=== PATIENT | female | born 1935 | race Caucasian/White ===

== ENCOUNTER 2017-02-27 00:43 | Emergency (ER) | payer MEDICARE ==
[~2017-02-27] VITALS: Ht 167.6 cm; Wt 63.5 kg
[~2017-02-27 00:43] MED LIST: ALBUTEROL0.09 MG/A2 INH; AMARYL4 MG PO; AMOXICILLIN500 MG PO; ANTIVERT25 MG PO; ASPIR-LOX325 MG PO; ASPIRIN325 MG PO; AZITHROMYCIN250 MG PO; AZITHROMYCIN500 MG PO; B121000 MCG/1 IM; CARBIDOPA & LEV1 TA1 PO; CEFTIN500 MG PO; DOXYCYCLINE100 MG PO; DULCOLAX5 MG PO; ELAVIL25 MG PO; ELAVIL50 MG PO; FERROUS SULFAT324 M1 PO; GABAPENTIN100 MG PO; HUMALOG100 U/ML SC; JANUMET 1000 MG1 TA1 PO; LANTUS100 U/ML SC; METFORMIN HCL1000 MG PO; MIRALAX17 GM/DOSE PO; MOM30 ML PO; NEURONTIN100 MG PO; OXYGEN NAS; PREDNISONE10 MG PO; SIMVASTATIN80 MG PO; SYNTHROID0.1 MG PO; SYNTHROID0.125 MG PO; TRANSDERM0.33 MG/24 TD; TYLENOL325 M2 PO; VIBRAMYCIN100 MG PO; VITAMIN B121000 MC2 SL; ZITHROMAX250 MG PO; ZOLOFT25 MG PO
[2017-02-27 00:45] VITALS: BP 159/78
== END 2017-02-27 02:47 | disposition home or self-care (01) ==
LOC: ED 00:43
DX: K59.03 Drug induced constipation (principal); Z88.1 Allergy status to other antibiotic agents; Z88.6 Allergy status to analgesic agent; Z88.2 Allergy status to sulfonamides; Z79.82 Long term (current) use of aspirin; Z79.899 Other long term (current) drug therapy

== ENCOUNTER 2017-06-09 19:47 | Emergency (ER) | payer MEDICARE ==
[~2017-06-09] VITALS: Ht 162.5 cm; Wt 72.6 kg
[2017-06-09 19:56] VITALS: BP 142/76
[2017-06-09] MEDS ORDERED: DESITIN57 GM T (23:05)
== END 2017-06-09 23:06 | disposition home or self-care (01) ==
LOC: ED 19:47
DX: K59.00 Constipation, unspecified (principal); Z88.2 Allergy status to sulfonamides; Z88.1 Allergy status to other antibiotic agents; Z88.6 Allergy status to analgesic agent; Z79.899 Other long term (current) drug therapy

== ENCOUNTER → 2017-06-15 | Outpatient (CLI) | payer MEDICARE ==
[~2017-06-15] MED LIST changes: +DESITIN57 GM T
[2017-06-15 10:33] LABS: BASO % 0.6 % (0.0-1.0); EOS # 0.2 10*3/uL (0.0-0.4); EOS % 4.8 % (1.0-4.0); HEMATOCRIT 33.4 % (37.0-47.0); HEMOGLOBIN 10.7 g/dl (12.0-16.0); LYMPH # 1.2 10*3/uL (1.3-4.4); LYMPH % 23.3 % (27.0-41.0); MEAN CELL VOLUME 79.3 fl (81.0-99.0); MEAN CORPUSCULAR HGB 25.4 pg (27.0-31.0); MEAN PLATELET VOLUME 9.7 fl (9.6-12.3); MONO # 0.4 10*3/uL (0.1-1.0); MONO % 7.8 % (3.0-9.0); NEUT # 3.2 10*3/uL (2.3-7.9); NEUT % 63.1 % (47.0-73.0); PLATELET COUNT AUTOMATED 222 10*3/uL (130-400); RED BLOOD COUNT 4.21 10*6/uL (4.10-5.10); RED CELL DISTRI WIDTH 16.1 % (0-14.5)
[2017-06-15 10:51] LABS: ALBUMIN 3.6 gm/dl (3.1-4.5); CREATININE 1.48 mg/dL (0.55-1.02); POTASSIUM 5.3 mmol/L (3.5-5.1); TOTAL PROTEIN 7.1 gm/dL (6.4-8.2)
== END | disposition home or self-care (01) ==
LOC: LAB 10:03
PROVIDERS: Internal Medicine
DX: E03.9 Hypothyroidism, unspecified (principal); E11.42 Type 2 diabetes mellitus with diabetic polyneuropathy; E78.00 Pure hypercholesterolemia, unspecified; E11.22 Type 2 diabetes mellitus with diabetic chronic kidney disease; N18.3 Chronic kidney disease, stage 3 (moderate); E55.9 Vitamin D deficiency, unspecified

== ENCOUNTER 2017-07-22 16:08 | Emergency (ER) | payer MEDICARE ==
[2017-07-22 16:45] VITALS: BP 140/90
[2017-07-22 17:18] LABS: BILIRUBIN NEGATIVE (NEGATIVE); BLOOD NEGATIVE (NEGATIVE); CLARITY SL CLOUDY (CLEAR); COLOR YELLOW (YELLOW); GLUCOSE NEGATIVE (NEGATIVE); KETONE NEGATIVE (NEGATIVE); LEUKO ESTERASE 2+ (NEGATIVE); NITRITE POSITIVE (NEGATIVE); UROBILINOGEN 0.2 E.U./dl (0.2-1.0)
[2017-07-22 17:29] LABS: BACTERIA 3+
[2017-07-22 17:31] LABS: HYALINE CAST 0-2; WBC 16-20 wbc/hpf (0-5)
[2017-07-22 17:31] LABS: BASO % 0.7 % (0.0-1.0); EOS # 0.2 10*3/uL (0.0-0.4); EOS % 3.7 % (1.0-4.0); HEMATOCRIT 35.2 % (37.0-47.0); LYMPH # 1.4 10*3/uL (1.3-4.4); LYMPH % 23.9 % (27.0-41.0); MEAN CELL VOLUME 78.6 fl (81.0-99.0); MEAN CORPUSCULAR HGB 24.6 pg (27.0-31.0); MEAN CORPUSCULAR HGB CONC 31.3 g/dl (33.0-37.0); MEAN PLATELET VOLUME 9.5 fl (9.6-12.3); MONO # 0.4 10*3/uL (0.1-1.0); MONO % 7.5 % (3.0-9.0); NEUT # 3.7 10*3/uL (2.3-7.9); PLATELET COUNT AUTOMATED 246 10*3/uL (130-400); RED BLOOD COUNT 4.48 10*6/uL (4.10-5.10); RED CELL DISTRI WIDTH 16.8 % (0-14.5); WHITE BLOOD COUNT 5.7 10*3/uL (4.8-10.8)
[2017-07-22 17:42] LABS: ACT PARTIAL THROMBO TIME 24.3 SECONDS (20.8-31.5)
[2017-07-22 17:48] LABS: ALBUMIN 3.9 gm/dl (3.1-4.5); CREATININE 1.41 mg/dL (0.55-1.02); POTASSIUM 4.6 mmol/L (3.5-5.1); TOTAL PROTEIN 7.6 gm/dL (6.4-8.2)
== END 2017-07-22 20:35 | disposition home or self-care (01) ==
LOC: ED 16:08
PROVIDERS: Emergency Medicine
DX: S49.81XA Other specified injuries of right shoulder and upper arm, initial encounter (principal); S09.8XXA Other specified injuries of head, initial encounter; I25.10 Atherosclerotic heart disease of native coronary artery without angina pectoris; K21.9 Gastro-esophageal reflux disease without esophagitis; E03.9 Hypothyroidism, unspecified; E11.9 Type 2 diabetes mellitus without complications; E11.22 Type 2 diabetes mellitus with diabetic chronic kidney disease; N18.3 Chronic kidney disease, stage 3 (moderate); E78.5 Hyperlipidemia, unspecified; Z85.72 Personal history of non-Hodgkin lymphomas; Z88.2 Allergy status to sulfonamides; Z88.5 Allergy status to narcotic agent; Z88.8 Allergy status to other drugs, medicaments and biological substances; Z79.82 Long term (current) use of aspirin; Z79.84 Long term (current) use of oral hypoglycemic drugs; Z79.4 Long term (current) use of insulin; Z79.899 Other long term (current) drug therapy; W19.XXXA Unspecified fall, initial encounter; Y93.01 Activity, walking, marching and hiking; Y92.89 Other specified places as the place of occurrence of the external cause; Y99.8 Other external cause status

== ENCOUNTER 2017-08-21 22:16 | Inpatient (IN) | payer MEDICARE, OTHER ==
[~2017-08-21] VITALS: Ht 160 cm; Wt 120.4 kg
[~2017-08-21 22:16] MED LIST changes: +AMARYL2 MG PO; -AMARYL4 MG PO; +AMITRIPTYLINE50 MG PO; -ELAVIL50 MG PO; +LANTUS SOL100 UNIT/1 SQ; -NEURONTIN100 MG PO; +NEURONTIN300 MG PO; -SYNTHROID0.1 MG PO; +Synthroid,Lev100 MCG PO
[2017-08-21 22:19] VITALS: BP 181/79
[2017-08-21 22:58] VITALS: BP 160/64
[2017-08-21 22:59] VITALS: BP 141/87
[2017-08-21 23:17] LABS: BASO % 0.5 % (0.0-1.0); EOS # 0.3 10*3/uL (0.0-0.4); HEMATOCRIT 34.7 % (37.0-47.0); HEMOGLOBIN 10.9 g/dl (12.0-16.0); LYMPH # 1.6 10*3/uL (1.3-4.4); LYMPH % 18.7 % (27.0-41.0); MEAN CELL VOLUME 78.5 fl (81.0-99.0); MEAN CORPUSCULAR HGB 24.7 pg (27.0-31.0); MEAN CORPUSCULAR HGB CONC 31.4 g/dl (33.0-37.0); MEAN PLATELET VOLUME 9.8 fl (9.6-12.3); MONO # 0.6 10*3/uL (0.1-1.0); MONO % 6.5 % (3.0-9.0); NEUT # 6.2 10*3/uL (2.3-7.9); PLATELET COUNT AUTOMATED 248 10*3/uL (130-400); RED BLOOD COUNT 4.42 10*6/uL (4.10-5.10); RED CELL DISTRI WIDTH 16.2 % (0-14.5); WHITE BLOOD COUNT 8.7 10*3/uL (4.8-10.8)
[2017-08-21 23:30] LABS: INTERNATIONAL NORM RATIO 0.9 (2.0-3.5)
[2017-08-21 23:33] LABS: ALBUMIN 3.6 gm/dl (3.1-4.5); ALKALINE PHOSPHATASE 63 U/L (45-117); BUN 27 mg/dl (7-24); CHLORIDE 105 mmol/L (98-107); CREATININE 1.64 mg/dL (0.55-1.02); POTASSIUM 4.6 mmol/L (3.5-5.1); SGOT/AST 9 IU/L (3-35); SGPT/ALT 16 U/L (12-78); SODIUM 140 mmol/L (136-145); TOTAL PROTEIN 7.2 gm/dL (6.4-8.2)
[2017-08-21 23:35] LABS: TROPONIN I < 0.015 ng/ml (<0.045)
[2017-08-22 00:23] LABS: BILIRUBIN NEGATIVE (NEGATIVE); BLOOD NEGATIVE (NEGATIVE); CLARITY SL CLOUDY (CLEAR); COLOR YELLOW (YELLOW); GLUCOSE 1+ (NEGATIVE); KETONE TRACE (NEGATIVE); LEUKO ESTERASE 2+ (NEGATIVE); NITRITE POSITIVE (NEGATIVE); SPECIFIC GRAVITY 1.015 (1.005-1.030); UROBILINOGEN 0.2 E.U./dl (0.2-1.0)
[2017-08-22 00:34] LABS: BACTERIA 3+; WBC 51-100 wbc/hpf (0-5)
--- NOTE | 2017-08-22 01:39 | NUR ---
REPORT GIVEN TO HARLAN CALLES
[2017-08-22 02:00] VITALS: BP 158/65
--- NOTE | 2017-08-22 02:00 | NUR ---
A 81, admitted to , under the services of GEORGIA Machuca DO with a diagnosis of . Chief complaint is UTI. FREQUENT FALLS, FAILURE OF OUTPATIENT THERAPY. Patient arrived via OTHER from ER. Monitor applied. Initial assessment completed. Vital signs taken and recorded. GEORGAI MACHUCA DO notified of admission to the unit. Orders received. See assessment for past medical history, medications and allergies. Patient and/or family oriented to unit. visitation policy reviewed. Clothing/patient valuable form completed. WILMAR GARCÍA
--- NOTE | 2017-08-22 02:20 | NUR ---
CRITICAL LACTIC ACID CALLED FROM LAB OF 2.4 DR. HOBBS NOTIFIED, PT ALSO REPORTS HAVING THE FLU/PNEUMONIA VACCINES
[2017-08-22 02:29] LABS: CPK 63 U/L (26-192)
[2017-08-22 02:31] LABS: TROPONIN I < 0.015 ng/ml (<0.045)
[2017-08-22 04:45] LABS: BASO % 0.5 % (0.0-1.0); EOS # 0.3 10*3/uL (0.0-0.4); EOS % 4.1 % (1.0-4.0); HEMATOCRIT 34.3 % (37.0-47.0); HEMOGLOBIN 10.7 g/dl (12.0-16.0); LYMPH # 1.6 10*3/uL (1.3-4.4); LYMPH % 23.7 % (27.0-41.0); MEAN CORPUSCULAR HGB 24.9 pg (27.0-31.0); MEAN CORPUSCULAR HGB CONC 31.2 g/dl (33.0-37.0); MEAN PLATELET VOLUME 9.9 fl (9.6-12.3); MONO # 0.5 10*3/uL (0.1-1.0); MONO % 7.7 % (3.0-9.0); NEUT # 4.2 10*3/uL (2.3-7.9); NEUT % 63.7 % (47.0-73.0); PLATELET COUNT AUTOMATED 235 10*3/uL (130-400); RED BLOOD COUNT 4.29 10*6/uL (4.10-5.10); RED CELL DISTRI WIDTH 16.5 % (0-14.5); WHITE BLOOD COUNT 6.5 10*3/uL (4.8-10.8)
[2017-08-22 04:57] LABS: ACT PARTIAL THROMBO TIME 24.6 SECONDS (20.8-31.5)
[2017-08-22 05:00] LABS: CPK 56 U/L (26-192)
[2017-08-22 05:02] LABS: ALBUMIN 3.4 gm/dl (3.1-4.5); CREATININE 1.5 mg/dL (0.55-1.02); FREE T4 1.25 ng/dl (0.76-1.46); POTASSIUM 4.5 mmol/L (3.5-5.1)
[2017-08-22 05:03] LABS: TROPONIN I < 0.015 ng/ml (<0.045)
--- NOTE | 2017-08-22 05:04 | NUR ---
CALL RECIEVED FROM LAB [facility] 2.5, DR. Dru ROSARIO NOTIFIED
[2017-08-22 05:11] LABS: PHOSPHOROUS 4.7 mg/dL (2.5-4.9); THYROID STIM HORMONE (HS) 1.46 uIU/ml (0.358-4.75)
--- NOTE | 2017-08-22 07:07 | NUR ---
Shift chart check completed.
[2017-08-22 07:51] LABS: VITAMIN D, 25-HYDROXY 29.8 ng/mL (30-100)
[2017-08-22 08:00] VITALS: BP 165/65
[2017-08-22] MEDS ORDERED: LINZESS145 MC1 PO (09:14)
[2017-08-22] MEDS ORDERED: VISTARIL50 MG PO (09:18)
[2017-08-22] MEDS ORDERED: OXYBUTYNIN5 MG PO (09:18)
[2017-08-22] MEDS ORDERED: MIRAPEX0.25 M1 PO (09:19)
--- NOTE | 2017-08-22 09:19 | NUR ---
MED REC UPDATED PER PATIENT'S PHARMACIST. DR BEGUM MADE AWARE
--- NOTE | 2017-08-22 09:33 | NUR ---
ECHO BEING DONE AT BEDSIDE
--- NOTE | 2017-08-22 10:39 | NUR ---
In to see patient to discuss discharge plans, son at bedside. Patient currently has 2 walkers, cane, wheelchair and they are in the process of getting a stairlift in the home to assist her in going upstairs to bed. Patient also has Passport services 5 days a week to help assist with light duties and ADL's. Both the son and the patient are adamately refusing patient going to snf and are "considering" physical therapy in the home. They stated she has done that several times and they don't feel it is beneficial to her. Will follow
--- NOTE | 2017-08-22 11:11 | NUR ---
PATIENT TELLING THE FAMILY THAT SHE DOES NOT WANT TO GO ANYWHERE FOR PHYSICAL THERAPY. THEY ARE ASKING HER TO THINK ABOUR IT
[2017-08-22 12:00] VITALS: BP 155/60
--- NOTE | 2017-08-22 12:20 | NUR ---
PHYSICAL THERAPY PAtient evaluated on 4, full evaluation to follow. Continue with PT as per plan of care with fall, max (A) x 2 and acute debility precautions. Will require SNF for impaired mobility in order to return to PLOF at assisted living. PAtient is high complexity via chart review, tests and evaluation: 82792. Thank you for this referral. Shelly Gleason,PT
--- NOTE | 2017-08-22 12:28 | NUR ---
PHYSICAL THERAPY PAtient evaluated on 4, full evaluation to follow. Continue with PT as per plan of care with fall, max (A) x 2 and acute debility precautions. Will require SNF for impaired mobility in order to return to PLOF AT HOME. PAtient is high complexity via chart review, tests and evaluation: 37030. Thank you for this referral. Shelly Gleason,PT
[2017-08-22 16:00] VITALS: BP 179/78
[2017-08-22 20:00] VITALS: BP 156/72
[2017-08-23] VITALS: BP 149/77
--- NOTE | 2017-08-23 03:28 | NUR ---
24HR CHART CHECK COMPLETED.
[2017-08-23 07:22] LABS: BASO % 0.5 % (0.0-1.0); EOS # 0.3 10*3/uL (0.0-0.4); EOS % 4.8 % (1.0-4.0); HEMATOCRIT 32.6 % (37.0-47.0); HEMOGLOBIN 10.4 g/dl (12.0-16.0); LYMPH # 0.8 10*3/uL (1.3-4.4); LYMPH % 12.1 % (27.0-41.0); MEAN CELL VOLUME 77.4 fl (81.0-99.0); MEAN CORPUSCULAR HGB 24.7 pg (27.0-31.0); MEAN CORPUSCULAR HGB CONC 31.9 g/dl (33.0-37.0); MONO # 0.5 10*3/uL (0.1-1.0); MONO % 7.7 % (3.0-9.0); NEUT # 4.9 10*3/uL (2.3-7.9); NEUT % 74.4 % (47.0-73.0); PLATELET COUNT AUTOMATED 226 10*3/uL (130-400); RED BLOOD COUNT 4.21 10*6/uL (4.10-5.10); RED CELL DISTRI WIDTH 16.1 % (0-14.5); WHITE BLOOD COUNT 6.6 10*3/uL (4.8-10.8)
[2017-08-23 07:47] LABS: CREATININE 1.23 mg/dL (0.55-1.02); POTASSIUM 3.7 mmol/L (3.5-5.1)
[2017-08-23 08:00] VITALS: BP 133/96
--- NOTE | 2017-08-23 10:11 | NUR ---
PHYSICAL THERAPY Mrs Mccann seen this AM 1:1 for her therapy session, Pt supine in bed. With verbal cueing transfer supine/sit MOD A X 1, sitting balance CG X 1. Sit/stand X 4, with MAX A X 1 and much cueing to lean forward for standing balance each time. Stand to tolerance with sitting rest after each stand with cueing for standing balance. Pt back supine, call light and phone. End with act LE Ex of quad sets, heel slides, ankle pumps working to tolerance. RANDELL SALINAS PENCIL INSPECTOR.
--- NOTE | 2017-08-23 11:01 | NUR ---
Snapper On in to talk to patient. Patient states lives at home with son. There are 13 steps in the home. Physician: Luna Corrales [facility]acy: [facility] Home health services: no Patient's level of ADLs: MODERATE ASSIST Patient has working utilities: yes DME: walker for ambulation Follow-up physician's appointment after d/c: will be made by hospitalist nurse director upon discharge Does patient want to access PORTAL?: no Discharge plan return home with [facility]. Will have shutdown planner/foster care social worker follow-up. Patient lives at home with her son. Discussed with patient about short term half-way upon discharge and patient adamantly refuses. She wants to return home with [facility]. She has banisters going up the steps that she holds onto. Family is in the process of installing a chair lift. Her son cooks their meals. She is able to bathe herself with the use of a shower chair and shower hand rails. She uses a walker for ambulation. RASHARD CEBALLOS
--- NOTE | 2017-08-23 11:33 | NUR ---
retail training manager spoke to son. Son states his mother has Passport at home and her hours were just increased by 4-5 hours. He is at home until about 2pm when he goes to work and then the aide comes in and stays until about 8-9pm and gets her ready for bed. The aides assist her in bathing. Patient is willing to try physical therapy in the home. Patient has a great support system.
[2017-08-23 12:00] VITALS: BP 128/63
[2017-08-23 16:00] VITALS: BP 144/65
--- NOTE | 2017-08-23 19:42 | NUR ---
PT STATES THAT SHE HAS NOT MOVED HER BOWELS IN 5 DAYS AND THAT HE LINZESS THAT SHE TAKES AT HOME DOES NOT HELP, SHE DOES NOT WANT MOM OR DULCOLAX AND SHE WANTS TO SEE IF SHE COULD GET MIRALAX WHICH SHE WAS TAKING AT HOME. DR. ROSARIO STATED SHE WILL ADD THIS
--- NOTE | 2017-08-23 19:45 | NUR ---
PRN TYLENOL GIVEN FOR PT COMPLAINTS OF A HEADACHE RATING IT A 4 OUT OF 10. CALL LIGHT WITHN REACH, WILL MONITOR
[2017-08-23 20:00] VITALS: BP 146/67
--- NOTE | 2017-08-23 20:45 | NUR ---
PRN TYLENOL APPEARS EFFECTIVE, PT SLEEPING
[2017-08-23 22:00] VITALS: BP 138/59
[2017-08-24] VITALS: BP 138/59
[2017-08-24 06:25] LABS: CREATININE 1.27 mg/dL (0.55-1.02); POTASSIUM 3.7 mmol/L (3.5-5.1)
[2017-08-24 08:00] VITALS: BP 116/53
--- NOTE | 2017-08-24 08:11 | NUR ---
PHYSICAL THERAPY NURSING IN THE ROOM. WILL CHECK BACK IN A LITTLE WHILE. MANDO CAMACHO PTA
--- NOTE | 2017-08-24 08:56 | NUR ---
Learning Services Coordinator in to see patient. No new needs or request at this time. Patient to be discharged home when medically stable with home health.
--- NOTE | 2017-08-24 10:48 | NUR ---
In to see patient, son at bedside. discussed short term snf stay, patient is in agreement. She requested [facility] [place]. Faxed referrals, waiting on accpetance.
--- NOTE | 2017-08-24 11:36 | NUR ---
Patient son came into office and stated he and his sister discussed snf options. They are absolutely adament patient will not be placed at the [facility]. If [facility] or [facility] do not have any beds available she will go home with home health and PT. There are no beds available at [facility] or [facility] at this time. Discussed again with patient and gave list of remaining faclities, she will think about it and get back to me. I asked her to please contact her son and or daughter about remaining facilities today as we need a plan in place. Will follow.
--- NOTE | 2017-08-24 11:38 | NUR ---
PHYSICAL THERAPY Patient presented to therapy with report of wanting to go home and saying she feels pretty good. Patient was in seated position on bedside chair. Patient performed sit to stands x 5 with Max A X 1. Patient performed standing tolerance at W/W for 50 sec before she needed to sit with Max A X 1. Patient performed seated ther ex x 20 reps in all planes of movement. Patient had a very difficult time understanding hand placement when transfering from sit to stand and stand to sit. Patient has retrograde motion when standing, rolling back on her heels, which increases risk for falls. Patient was left in seated position with call light within reach and body alarm attached. LEs were raised. Patient was 1:1 with this STRAW HAT BRUSHER for 25 minutes total. MANDO CAMACHO STRAW HAT BRUSHER
[2017-08-24 12:00] VITALS: BP 126/64
--- NOTE | 2017-08-24 13:35 | NUR ---
In to see patient again, patient discussed with both her son and daughter. She is now in agreement to be referred to [facility]. Contacted [facility] and faxed referral. Patient requires a 3 night stay, waiting on acceptance.
[2017-08-24 14:00] VITALS: BP 126/64
[2017-08-24 16:00] VITALS: BP 122/70
[2017-08-24 20:00] VITALS: BP 122/55
--- NOTE | 2017-08-24 20:00 | NUR ---
AWAKE & ALERT; PT. CONFUSED. SKIN WARM & DRY. HEP LOCK INTACT TO RIGHT; SITE ASYMPTOMATIC. NO DISTRESS NOTED. CALL LIGHT WITHIN REACH.
--- NOTE | 2017-08-24 22:00 | NUR ---
BLOOD SUGAR 158.
--- NOTE | 2017-08-24 22:00 | NUR ---
TOOK PO MEDICATIONS WITHOUT DIFFICULTY.
[2017-08-25] VITALS: BP 117/50
--- NOTE | 2017-08-25 06:00 | NUR ---
BLOOD SUGAR 288; COVERAGE GIVEN PER EMAR.
[2017-08-25 07:41] LABS: CREATININE 1.46 mg/dL (0.55-1.02); POTASSIUM 4.3 mmol/L (3.5-5.1)
[2017-08-25 08:00] VITALS: BP 126/48
--- NOTE | 2017-08-25 08:30 | NUR ---
Fashion Marketer in to see patient. No new needs or request at this time. Patient to be discharged to [facility] when medically stable.
--- NOTE | 2017-08-25 09:50 | NUR ---
PHYSICAL THERAPY Mrs Gerard seen this AM 1:1 and having a better day today. Pt was up in her bedside chair. Transfer sit/stand with much verbal cueing and up on her third try with MAX A X 1. Then gait with wheeled walker 9' X 2, MOD A X 1, one sitting rest with a very slow gait, cues for safety and turns and up in her chair, call light. This was Pt best so far. RANDELL SALINAS BLUEPRINT DEVELOPER.
--- NOTE | 2017-08-25 10:45 | NUR ---
Patient has been accepted by [facility] and has met the 3 night stay requirement. Patient can go today after 12 noon due to bed availability if medically stable for discharge.
[2017-08-25] MEDS ORDERED: DOXYCYCLINE100 MG PO (11:48)
[2017-08-25 12:00] VITALS: BP 130/44
--- NOTE | 2017-08-25 12:54 | NUR ---
PHYSICAL THERAPY Mrs Gerard seen this PM 1:1 for her therapy session and is improving but slow. Transfer sit/stand with cueing up for standing balance MOD A X 1, Then gait with wheeled walker, very slow gait 11' X 1, cues for her turns and needing help with her walker. Pt back standing in front of her chair another standing balance MOD A X 1, then sit to rest, lunch coming in, but is improving. RANDELL SALINAS CONSUMER SCIENCE TEACHER.
--- NOTE | 2017-08-25 13:36 | NUR ---
PHYSICAL THERAPY CO-SIGN I approve of the Phyical Therapy notes written above. REG REES PT
--- NOTE | 2017-08-25 13:53 | NUR ---
PT TAKEN BY PRIVATE VEHICLE TO [facility]
== END 2017-08-25 13:53 | disposition other institution (70) | DRG 682 ==
LOC: ED 22:16 → EDHOLD 08-22 01:04 → 4E 08-22 01:04
PROVIDERS: Hospitalist; Internal Medicine; Physician Assistant; ADMIT Emergency Medicine
DX: N17.0 Acute kidney failure with tubular necrosis (principal); G93.41 Metabolic encephalopathy; J90 Pleural effusion, not elsewhere classified; K44.0 Diaphragmatic hernia with obstruction, without gangrene; E87.2 Acidosis; E11.22 Type 2 diabetes mellitus with diabetic chronic kidney disease; E11.40 Type 2 diabetes mellitus with diabetic neuropathy, unspecified; N39.0 Urinary tract infection, site not specified; J98.11 Atelectasis; I50.32 Chronic diastolic (congestive) heart failure; E11.65 Type 2 diabetes mellitus with hyperglycemia; E86.0 Dehydration; N18.3 Chronic kidney disease, stage 3 (moderate); I25.10 Atherosclerotic heart disease of native coronary artery without angina pectoris; K21.9 Gastro-esophageal reflux disease without esophagitis; M85.80 Other specified disorders of bone density and structure, unspecified site; R29.6 Repeated falls; R89.7 Abnormal histological findings in specimens from other organs, systems and tissues; D50.9 Iron deficiency anemia, unspecified; R81 Glycosuria; E03.9 Hypothyroidism, unspecified; E78.5 Hyperlipidemia, unspecified; E34.9 Endocrine disorder, unspecified; K59.00 Constipation, unspecified; W18.39XA Other fall on same level, initial encounter; G89.29 Other chronic pain; I51.7 Cardiomegaly; I34.0 Nonrheumatic mitral (valve) insufficiency; R31.9 Hematuria, unspecified; B95.2 Enterococcus as the cause of diseases classified elsewhere; Z79.899 Other long term (current) drug therapy; Z79.4 Long term (current) use of insulin; Z79.82 Long term (current) use of aspirin; Z98.61 Coronary angioplasty status; Z98.42 Cataract extraction status, left eye; Z98.41 Cataract extraction status, right eye; Z90.710 Acquired absence of both cervix and uterus; Z82.49 Family history of ischemic heart disease and other diseases of the circulatory system; Z78.9 Other specified health status; Y99.8 Other external cause status; Y92.89 Other specified places as the place of occurrence of the external cause; Y93.89 Activity, other specified; Z80.1 Family history of malignant neoplasm of trachea, bronchus and lung; Z82.61 Family history of arthritis; Z88.2 Allergy status to sulfonamides; Z88.8 Allergy status to other drugs, medicaments and biological substances; Z85.72 Personal history of non-Hodgkin lymphomas; Z81.2 Family history of tobacco abuse and dependence

== ENCOUNTER → 2017-09-07 | Outpatient (CLI) | payer MEDICARE, OTHER ==
[~2017-09-07] MED LIST changes: +LINZESS145 MC1 PO; +MIRAPEX0.25 M1 PO; +OXYBUTYNIN5 MG PO; +VISTARIL50 MG PO
== END | disposition home or self-care (01) ==
LOC: ORTHO 09:12
DX: M79.605 Pain in left leg (principal)

== ENCOUNTER 2017-09-15 14:21 | Emergency (ER) | payer MEDICARE, OTHER ==
[~2017-09-15] VITALS: Ht 162.5 cm; Wt 72.6 kg
[2017-09-15 14:37] VITALS: BP 146/58
[2017-09-15] MEDS ORDERED: NYST SUSP PO (14:57)
[2017-09-15] MEDS ORDERED: DIFLUCAN150 MG PO (14:57)
== END 2017-09-15 14:58 | disposition home or self-care (01) ==
LOC: ED 14:21
DX: B37.0 Candidal stomatitis (principal); E11.22 Type 2 diabetes mellitus with diabetic chronic kidney disease; N18.3 Chronic kidney disease, stage 3 (moderate); I25.10 Atherosclerotic heart disease of native coronary artery without angina pectoris; K21.9 Gastro-esophageal reflux disease without esophagitis; E78.5 Hyperlipidemia, unspecified; E03.9 Hypothyroidism, unspecified; I50.9 Heart failure, unspecified; Z79.899 Other long term (current) drug therapy; Z90.710 Acquired absence of both cervix and uterus; Z98.890 Other specified postprocedural states; Z79.4 Long term (current) use of insulin; Z88.1 Allergy status to other antibiotic agents; Z88.8 Allergy status to other drugs, medicaments and biological substances; Z88.2 Allergy status to sulfonamides

== ENCOUNTER 2017-10-02 15:37 | Emergency (ER) | payer MEDICARE, OTHER ==
[~2017-10-02] VITALS: Ht 172.7 cm; Wt 99.8 kg
--- NOTE | ~2017-10-02 | EKG ---
[place], [place] ELECTROCARDIOGRAM REPORT NAME: JAMAL PARKER UNIT #: [id number] ROOM: DOCTOR: BALJIT CORREA MD BIRTHDATE: [birth year] DOS: 10/03/2017 IMPRESSION: Sinus rhythm, nonspecific ST-T changes, abnormal ECG. Baljit Correa MD CM:EKGRPT:ELECTROCARDIOGRAM REPORT [id number] [phone] BALJIT CORREA MD
[~2017-10-02 15:37] MED LIST changes: +DIFLUCAN150 MG PO; +NYST SUSP PO
[2017-10-02 16:52] LABS: BASO % 0.7 % (0.0-1.0); EOS # 0.2 10*3/uL (0.0-0.4); HEMATOCRIT 32.6 % (37.0-47.0); HEMOGLOBIN 10.2 g/dl (12.0-16.0); LYMPH # 1.6 10*3/uL (1.3-4.4); LYMPH % 26.2 % (27.0-41.0); MEAN CELL VOLUME 77.6 fl (81.0-99.0); MEAN CORPUSCULAR HGB 24.3 pg (27.0-31.0); MEAN CORPUSCULAR HGB CONC 31.3 g/dl (33.0-37.0); MEAN PLATELET VOLUME 9.7 fl (9.6-12.3); MONO # 0.4 10*3/uL (0.1-1.0); MONO % 7.3 % (3.0-9.0); NEUT # 3.7 10*3/uL (2.3-7.9); NEUT % 61.3 % (47.0-73.0); PLATELET COUNT AUTOMATED 273 10*3/uL (130-400); RED CELL DISTRI WIDTH 16.3 % (0-14.5)
[2017-10-02 17:11] LABS: ALBUMIN 3.4 gm/dl (3.1-4.5); ALKALINE PHOSPHATASE 47 U/L (45-117); BUN 27 mg/dl (7-24); CHLORIDE 107 mmol/L (98-107); CREATININE 1.74 mg/dL (0.55-1.02); SGOT/AST 13 IU/L (3-35); SGPT/ALT 18 U/L (12-78); SODIUM 142 mmol/L (136-145)
[2017-10-02 17:13] LABS: TROPONIN I < 0.015 ng/ml (<0.045)
[2017-10-02 19:16] LABS: BILIRUBIN NEGATIVE (NEGATIVE); BLOOD TRACE-INTACT (NEGATIVE); CLARITY SL CLOUDY (CLEAR); COLOR YELLOW (YELLOW); GLUCOSE NEGATIVE (NEGATIVE); KETONE NEGATIVE (NEGATIVE); LEUKO ESTERASE 2+ (NEGATIVE); NITRITE POSITIVE (NEGATIVE); PH 5.5 (5.0-9.0); SPECIFIC GRAVITY 1.015 (1.005-1.030); UROBILINOGEN 0.2 E.U./dl (0.2-1.0)
[2017-10-02 19:22] LABS: BACTERIA 4+
[2017-10-02 19:23] LABS: WBC 41-50 wbc/hpf (0-5)
[2017-10-03 15:54] VITALS: BP 145/67
== END 2017-10-03 19:06 | disposition short-term general hospital (02) ==
LOC: ED 15:37
PROVIDERS: Physician Assistant
DX: G91.8 Other hydrocephalus (principal); G62.9 Polyneuropathy, unspecified; R29.6 Repeated falls; Z90.710 Acquired absence of both cervix and uterus; Z98.890 Other specified postprocedural states; Z98.42 Cataract extraction status, left eye; Z98.41 Cataract extraction status, right eye; Z79.899 Other long term (current) drug therapy; Z79.4 Long term (current) use of insulin; Z88.1 Allergy status to other antibiotic agents; Z88.5 Allergy status to narcotic agent; Z88.8 Allergy status to other drugs, medicaments and biological substances; Z88.6 Allergy status to analgesic agent; Z88.2 Allergy status to sulfonamides

== ENCOUNTER 2017-10-17 18:25 | Inpatient (IN) | payer MEDICARE, OTHER ==
[~2017-10-17] VITALS: Ht 170.1 cm; Wt 67.7 kg
[2017-10-17] VITALS (7 sets, daily range): BP systolic 117–148; BP diastolic 50–71
--- NOTE | ~2017-10-17 | PR ---
[place], [place] PROGRESS NOTE NAME: JAMAL PARKER UNIT #: [id number] ROOM: 406 DOCTOR: LINDA GARCIA DO BIRTHDATE: [birth year] DOS: 10/19/2017 SUBJECTIVE: The patient is seen and examined at bedside. The patient is lying in bed in no acute distress. The patient reports that she feels a little bit better today; however, she still remains mildly confused. Mentation is dramatically improved from yesterday to today. No new complaints at this time. OBJECTIVE: VITAL SIGNS: Temperature 97.9, pulse is 66, respirations 20, blood pressure 174/64, pulse ox is 95% on 2 liters nasal cannula. GENERAL APPEARANCE: The patient is alert and awake, no acute distress. HEENT: Eyes are clear. No injection. Nares are parent. Membranes are moist. NECK: Supple, nontender, without lymphadenopathy. CARDIOVASCULAR: Regular rate and rhythm. No murmurs, gallops or rubs. LUNGS: Clear to auscultation. No wheezes, rales or rhonchi. ABDOMEN: Soft, nontender with positive bowel sounds. EXTREMITIES: No edema or erythema noted in upper and lower extremities. NEUROLOGIC: Negative for focal deficits. LABORATORY DATA: White count 8.8, hemoglobin 9.1, hematocrit 29.9, platelet count 318. Chemistries: Sodium 148, potassium 3.1, chloride 112, carbon dioxide 29, BUN 18, creatinine 1.0, glucose 191. Calcium 8.4, phosphorus 2.1. Liver enzymes were negative. Albumin 2.3. Urine culture positive for light gram-negative bacilli. Blood cultures remain negative. MRSA screen was negative. IMPRESSION: 1. Altered mental status, improving. 2. Urinary tract infection. 3. Suspected normal pressure hydrocephalus. PLAN: The patient improved with antibiotics overnight. No change from pulmonary standpoint. Pulmonary bilateral effusions remain small and no intervention is indicated at this time. We will continue to follow. LINDA DO RADHA [place], [place] PROGRESS NOTE NAME: JAMAL PARKER UNIT #: [id number] ROOM: 406 DOCTOR: LINDA GARCIA DO BIRTHDATE: [birth year] SHADIA SAUL MD CM:PNSHILO [id number] LINDA GARCIA DO 10/19/17 1157 interface
--- NOTE | ~2017-10-17 | O ---
[place], [place] OPERATIVE NOTE NAME: JAMAL PARKER [facility] #: [id number] UNIT #: [id number] ROOM: 406 DOCTOR: PRISCA ALMANZAMARIANO BIRTHDATE: [birth year] DOS: 10/20/2017 GASTROENDOSCOPIC REPORT INDICATIONS: An 81-year-old patient who presented with chief complaint of abdominal pain, underwent investigation and CT scan was reporting suspected colitis and we have been asked for assessment of the patient in this regard and the concern was possible element of ischemic colitis. White blood cell rightfully was 15.7, H and H was 10 and 30. However, she was microcytic indices. Hemoglobin A1c was 8.1 shows she is uncontrolled, glucose was greater than 200, BUN and creatinine 17 and 1.4. Electrolytes: Potassium was low, which was addressed. Liver function test. CBC differential showed white blood cell elevated to 21 and lactic acid; however, surprisingly was 1.7. BUN and creatinine within normal limits. No acute chest x-ray findings. CT scan of the abdomen and pelvis was suspected colitis. Differential to be done through the colonoscopic assessment. PAST MEDICAL HISTORY: Associated with B-cell lymphoma in remission, hiatal hernia, coronary artery disease, obesity, normal pressure hydrocephalus, neuropathy. PAST SURGICAL HISTORY: Cataract, podiatric surgery, hysterectomy, coronary artery stents. SOCIAL HISTORY: Nonsmoker, nonalcohol consumer and longterm. FAMILY HISTORY: Noncontributory. MEDICATIONS: Removed. ALLERGIES: NAPROXEN, SULFA, CODEINE, LEVAQUIN, ____. Today's procedure part of investigation is colonoscopy plus biopsy. PREMEDICATION: Versed and Diprivan. SCOPE: Olympus folding colonoscope 10L video. REPORT: After putting the patient in left lateral position and application of lubricant to rectal pouch and digital examination, scope was introduced. Thereafter, under direct visualization, advanced through the length of colon with some difficulty. Difficulty is presence of solid stool and diverticulosis and that the ambiguity of visualization. However, this might the issues on hand, we negotiated the scope to mid transverse colon at sigmoid level, ischemic colitis was identified. This was at the margin biopsied photographed. Diverticulosis noticed. Retained stool documented. The patient extubated, tolerated the procedure well. IMPRESSION: Ischemic colitis at sigmoid colon level. Retained stool and diverticulosis. [place], [place] OPERATIVE NOTE NAME: JAMAL PARKER UNIT #: [id number] ROOM: 406 DOCTOR: PRISCA ALMANZA,MARAINO BIRTHDATE: [birth year] PLAN AND DISCUSSION: We are going to continue with Flagyl IV 500 mg q. 8 hours. I have checked on blood cultures that they have been negative. Venous study of lower extremities, also has been assessed. No evidence of DVT has been noticed. Urine culture was assessed, there is count of less than 25,000 bacteria. We are going to be able to feed this patient with full liquid today and perhaps by next day or 2 back on regular diet. The patient degree of ischemia does not require surgical intervention. I thank you very much indeed for your kind referral. MARIANO COPE MD CM:OPRECORD:OPERATIVE NOTE [id number] MARIANO COPE MD 10/20/17 1553 interface
--- NOTE | ~2017-10-17 | PR ---
[place], [place] PROGRESS NOTE NAME: JAMAL PARKER [facility] #: [id number] UNIT #: [id number] ROOM: 406 DOCTOR: DORYS DE LA TORRE MD,SHADIA BIRTHDATE: [birth year] DOS: 10/19/2017 SUBJECTIVE: The patient was independently seen and examined with [id number] encounter. History was confirmed for this patient. Physical examination performed. All the labs, which are available were reviewed with the patient as well. Changes in medical management necessary were personally made. The assessment personally completed note of which was done by the medical affairs specialist was approved. The patient has been noted improvement in mental status this morning, noted to be speaking, but not sure anything noted fully oriented. She was not answering the questions appropriately. She has been transferred to a telemetry floor from the ICU in the last 24 hours. The patient was not transferred to the other hospital as the family members so far seem like change their mind of transfer. The patient has not been reported symptoms of nausea or vomiting. Oral intake remains decreased. There was no headache described. There was no abdominal pain noted. There were no symptoms of hematemesis, melena, hematochezia reported. OBJECTIVE: VITAL SIGNS: For the patient, which has been recorded showed the temperature noted as normal. The respiratory rate of the patient recorded as 18-20, heart rate 75, blood pressure 172/80-150/58. The pulse oxygen saturation for the patient was noted as 92% saturation on 2 liter nasal cannula. HEENT: Examination shows head was atraumatic. Eyes nonicterus. NECK: Supple. CARDIOVASCULAR: S1, S2 is audible. LUNGS: The patient was noted without any wheezing or crackles at the present time. Decreased breath sounds are noted essentially in the left lower lobe. ABDOMEN: Soft. Bowel sounds present. EXTREMITIES: Without any acute edema. VISIBLE SKIN: No lesions or rashes. MUSCULOSKELETAL: No acute deformities. GENITOURINARY: The patient was essentially noted improvement in the mental status, but still the patient did not appear like fully awake, oriented to time and place. LABORATORY DATA: CMP of the patient that was done this morning shows BUN was 18, creatinine 1.08. Glucose 191. Sodium 148, potassium 3.1. Total protein 5.7, albumin 2.3. CBC of patient's hemoglobin 9.1, hematocrit 29.9, platelet count was normal. The patient had a CT scan of the chest, which was ordered by the primary care attending without contrast for the patient. Images were personally reviewed shows previous changes of previously noted for the patient with a large ventral hernia, small pleural fluid, and small area of left lower lobe atelectasis. IMPRESSION: 1. The patient has been noted with persistent change in mental status. 2. Hiatal hernia. 3. Small bilateral pleural fluid. The etiology of the patient was unclear. 4. Possibility of normal pressure hydrocephalus. 5. Possible consideration of protein-calorie malnutrition. [place], [place] PROGRESS NOTE NAME: JAMAL PARKER UNIT #: [id number] ROOM: 406 DOCTOR: DORYS DE LA TORRE MD,SHADIA BIRTHDATE: [birth year] PLAN OF MANAGEMENT: Continue current medical management plan of treatment. Close observation of pleural fluid noted, small at this time, would not require any acute intervention. Supportive therapy, plan of management as well. Consider repeating the CT scan of the head for this patient as well. Adjustment in antibiotic based on the culture results would be recommended. Other supportive plan of management. Aspiration precautions. Oxygen supplementation in case of hypoxia, titrate oxygen saturation 92% or greater. SHADIA SAUL MD CM:PNSHILO [id number] SHADIA DE LA TORRE MD 10/20/17 0546 interface
--- NOTE | ~2017-10-17 | PR ---
[place], [place] PROGRESS NOTE NAME: JAMAL PARKER UNIT #: [id number] ROOM: 406 DOCTOR: DORYS DE LA TORRE MD,SHADIA BIRTHDATE: [birth year] DOS: 10/24/2017 PULMONARY FOLLOWUP SUBJECTIVE: The patient is noted awake and alert at this time, has not been noted any ongoing acute respiratory complaints. There were no symptoms of chest pain or hemoptysis reported. OBJECTIVE: VITAL SIGNS: For the patient shows a normal temperature, respiratory rate 18, heart rate 74, blood pressure 136/54. The pulse oxygen saturation on room air was at 93% saturation. HEENT: Showed no acute change. NECK: Supple. CARDIOVASCULAR: S1, S2 is audible. LUNGS: The patient was noted without any wheezing or crackles present. Breath sounds are noted decreased in the left lower lung. ABDOMEN: Soft and nontender. Bowel sounds are present. LABORATORY DATA: The chest x-ray of the patient that was done for the patient yesterday, ordered for this patient was reviewed for this patient shows chronic hiatal hernia for the patient in the left side for the patient with some area of atelectasis or infiltration. Small bilateral pleural fluid was noted. There was no finding of congestive heart failure. IMPRESSION: The patient was being currently noted with improvement in the respiratory status of the patient at the present time. She could be transferred to the nursing facility for rehabilitation, nutrition support for the patient and other medical management. She could be given oral antibiotics for the next 5 days for the patient, start doxycycline, and then to be discontinued. SHADIA SAUL MD CM:PNTRANS [id number] SHADIA DE LA TORRE MD 10/25/17 0019 interface
--- NOTE | ~2017-10-17 | PR ---
[place], [place] PROGRESS NOTE [id number]IT #: [id number] ROOM: 406 DOCTOR: LINDA GARCIA DO BIRTHDATE: [birth year] DOS: 10/20/2017 SUBJECTIVE: The patient is seen and examined at bedside. The patient is lying in bed in no acute distress. The patient was sleeping, but was easily aroused and was alert and oriented at the time of interview. The patient reports that she has no change and her breathing continues to be nonlabored. No complaints of cough, shortness of breath, wheezing, productive sputum or chest pain. The patient's mentation continues to improve daily. OBJECTIVE: VITAL SIGNS: Temperature 98.4, pulse is 76, respirations 18, blood pressure 144/59, pulse ox is 93% on 2 liters nasal cannula. GENERAL APPEARANCE: The patient is awake and alert and oriented to self and time, not oriented to place. HEENT: Eyes are clear. Nares are patent. Mucous membranes are moist. NECK: Supple, nontender. CARDIOVASCULAR: Regular rate and rhythm, no murmurs, gallops or rubs. CHEST: Clear to auscultation. No wheezes, rales or rhonchi. ABDOMEN: Soft, nontender with positive bowel sounds. EXTREMITIES: 1+ edema in the upper and lower extremities. No erythema, clubbing or cyanosis. NEUROLOGIC: Negative for focal deficits LABORATORY DATA: Chemistries are reviewed and CBC, no acute change from yesterday's labs. Blood culture remains negative. Urine culture grows Citrobacter freundii at 25,000 colony forming units. Lower extremity ultrasound showed no evidence of DVT yesterday. Chest CT from yesterday morning shows small bilateral pleural effusions with a suspected left lower lobe pneumonia and a large sliding hiatal hernia. IMPRESSION: 1. Left lower lobe pneumonia. 2. Altered mental status. 3. Colitis. TREATMENT PLAN: The patient will be switched to doxycycline and Rocephin, may discontinue vancomycin, Merrem and azithromycin for patient's pneumonia. Cultures remain negative to date. We will adjust antibiotics based on the cultures and sensitivities. The patient continues to improve clinically. We will continue to follow. Pneumonia has been resolving. LINDA GARCIA DO [place], [place] PROGRESS NOTE NAME: KEITHJAMAL UNIT #: [id number] ROOM: [facility] DOCTOR: LINDA GARCIA DO BIRTHDATE: [birth year] SHADIA SAUL MD CM:DALIA [id number] LINDA GARCIA DO 10/21/17 0232 interface
--- NOTE | ~2017-10-17 | CON ---
[place], [place] REPORT OF CONSULTATION NAME: [id number] UNIT #: [id number] ROOM: [facility] DOCTOR: LINDA GARCIA DO BIRTHDATE: [birth year] DOS: 10/18/2017 CHIEF COMPLAINT: Altered mental status. HISTORY OF PRESENT ILLNESS: This 81-year-old female was brought to the ER from [facility] with altered mental status, unresponsive. The patient was recently discharged from [facility] for a workup for a fall with similar altered mental status. The patient had a lumbar puncture performed there and according to family, it was positive for normal pressure; however, the CT scan was suggestive of hydrocephalus, but family reports the patient was discharged with a diagnosis of normal pressure hydrocephalus without any intervention. At that time, the [facility], continued to remain altered with no improvement up into this point and a week later after being discharged, the patient was brought to the ER with continuation of altered mental status symptoms. CT in the ER showed pleural effusions bilaterally. For this reason, the primary team consulted the pulmonary team for pleural effusions for possible thoracentesis. The patient was seen and examined at bedside this morning. Reports she is in no acute distress; however, she does report that she does not feel well. She is alert to person and place; however, does not know what year it is. She has no new complaints today, is very lethargic and obtunded, and difficult to arouse. Son was at bedside at the time of interview and son reports that she has been having episodes of multiple falls at home and that they had been contributing it to her peripheral neuropathy and also the son requests that the patient be transferred at this time to [facility] to be seen by a neurologist since that service is not available here at this hospital. PAST MEDICAL HISTORY: Coronary artery disease, chronic kidney disease stage 3, diastolic CHF, frequent falls, GERD, hiatal hernia, B cell lymphoma, hyperlipidemia, hydrocephalus, hypothyroidism, neuropathy, osteopenia, type 2 diabetes, and UTI. PAST SURGICAL HISTORY: Benign breast biopsy, bilateral cataract extraction, cardiac catheterization with stenting, foot surgery on the right, lymph node biopsy and total hysterectomy. SOCIAL HISTORY: Does not drink. Does not smoke. Does not use illicit drugs. FAMILY HISTORY: Father had a history of tobacco abuse, at age 70 of lung cancer. Mother had arthritis, in her 70s, unknown cause. ALLERGIES: LEVAQUIN, CODEINE, QUINOLONES, SULFA, CIPRO, NAPROXEN. HOME MEDICATIONS: Bisacodyl, docusate, famotidine, insulin, lactulose, levothyroxine, metformin, oxybutynin, polyethylene glycol, Mirapex, Zoloft, [place] Nasal spray. REVIEW OF SYSTEMS: Difficult to obtain due to the patient's condition; however, the patient denies chest pain, nausea, vomiting, headache, fever or chills. The patient does complain of generalized malaise. [place], [place] REPORT OF CONSULTATION NAME: JAMAL PARKER UNIT #: [id number] ROOM: [facility] DOCTOR: LINDA GARCIA DO BIRTHDATE: [birth year] PHYSICAL EXAMINATION: VITAL SIGNS: Temperature 97.4, pulse is 70, respirations 14, blood pressure 144/61, pulse ox is 96% on 2 liters nasal cannula. GENERAL APPEARANCE: The patient is somnolent, but alert and oriented times 2. HEENT: Eyes are clear. No injection. Nares are patent. Mucous membranes are moist. NECK: Supple, nontender. CARDIOVASCULAR: Regular rate and rhythm, no murmurs, gallops or rubs. PULMONARY: Clear to auscultation. No rales, wheezes or rhonchi. ABDOMEN: Soft, nontender with positive bowel sounds. EXTREMITIES: Mild 1+ edema in upper and lower extremities. SKIN: No rashes, no erythema, no lesions. LABORATORY DATA: White count 15.0, hemoglobin 9.2, hematocrit 30.1, platelet count 339. Chemistries: Sodium 146, potassium 3.3, chloride 111, bicarbonate 28, BUN 32, creatinine 1.6, glucose 192. Hemoglobin A1c 8.3, albumin 2.3, triglycerides 179, vitamin B12 , vitamin D 19.6, TSH 1.1. Coagulation profile is normal. Urinalysis shows positive for bacteria, leukocyte esterases in bilirubin. Blood cultures remain negative. Urine cultures remain negative. MRSA screen remains negative. Head CT shows dilation of the ventricles, possibly due to hydrocephalus, possibly due to atrophy from dementia. Abdomen and pelvis CT shows constipation with mild to moderate pleural effusion on the left and right, questionable left lower lobe pneumonia. Chest x-ray shows no acute process or obvious changes from prior studies. ASSESSMENT: 1. Metabolic encephalopathy. 2. Suspected normal pressure hydrocephalus. 3. Mild bilateral pleural effusions. 4. Hiatal hernia. 5. Chronic kidney disease. 6. Diabetes. TREATMENT PLAN: The patient needs no pulmonary intervention at this time. Agree with plan to transfer the patient to a tertiary center for neurology workup for possible shunt placement. Continue with current antibiotics. We will continue to follow as long as the patient remains in our ICU; however, I strongly recommend transfer to tertiary center for further workup. LINDA GARCIA DO [place], [place] REPORT OF CONSULTATION NAME: JAMAL PARKER [place] UNIT #: [id number] ROOM: [facility] DOCTOR: LINDA GARCIA DO BIRTHDATE: [birth year] SHADIA SAUL MD CM:CONSTR:REPORT OF CONSULTATION 1042 10/18/17 1144 interface
--- NOTE | ~2017-10-17 | PR ---
[place], [place] PROGRESS NOTE NAME[id number] UNIT #: [id number] ROOM: 406 DOCTOR: DORYS DE LA TORRE MD,SHADIA BIRTHDATE: [birth year] DOS: 10/22/2017 SUBJECTIVE: She has been noted essentially no changes in the respiratory status, wakefulness had been noted intermittently. She has not been noted in respiratory distress and symptoms of coughing or any sputum expectoration. OBJECTIVE: VITAL SIGNS: Showed normal temperature, respirations 18, heart rate 75, blood pressure 144/53. Pulse oxygen saturation on 2 liters 96% saturation. HEENT: No acute change. NECK: Supple. CARDIOVASCULAR: S1, S2 audible. LUNGS: Noted without any wheezing or crackles at the present time. The breaths are noted decreased lower portion of lung. ABDOMEN: Soft, nontender. LABORATORY DATA: CBC: Mild anemia, hemoglobin 9. BMP: Normal BUN and creatinine. Potassium 3.0. IMPRESSION: 1. Bilateral pleural for possibility of acute pneumonia or atelectasis, left lower lobe. Currently treated with the antibiotics. 2. Change in mental status, which has been noted intermittently with persistent overall debility. 3. Mild hyperkalemia, medication related. PLAN OF TREATMENT: No changes from the pulmonary standpoint. Continue the current therapy, plan of management. Chest x-ray will be obtained for PA lateral view tomorrow morning for further assessment. SHADIA SAUL MD CM:PNTRANS [id number] SHADIA DE LA TORRE MD 10/22/17 1626 interface
--- NOTE | ~2017-10-17 | PR ---
[place], [place] PROGRESS NOTE NAME: [id number] UNIT #: [id number] ROOM: 406 DOCTOR: DORYS DE LA TORRE MD,SHADIA BIRTHDATE: [birth year] DOS: 10/21/2017 SUBJECTIVE: She has been noted comfortable at this time, resting without any changes noted. She has not been noted symptoms of shortness of breath, coughing, or chest pain. Verbal communication remains limited. OBJECTIVE: VITAL SIGNS: Recorded normal temperature, respiratory rate 18, heart rate 72, blood pressure 149/59. Pulse oxygen saturation recorded on 2 liters is 95% saturation. HEENT: No acute change. NECK: Supple. CARDIOVASCULAR: S1, S2 audible. LUNGS: Decreased breath sounds in the lung bases. No wheezing or crackles. ABDOMEN: Soft, nontender. LABORATORY DATA: CBC, mild anemia, otherwise normal. BMP normal. Glucose 160, potassium 2.2. IMPRESSION: The patient with bilateral pleural fluid noted with large hiatal hernia. Questionable pneumonia. PLAN OF MANAGEMENT: No changes from the pulmonary standpoint at this time would be needed. The antibiotics were adjusted yesterday that will be continued for suspected pneumonia. Other plan of therapy and care. Usual treatment, other supportive plan of management. SHADIA SAUL MD CM:PNTRANS 1149 SHADIA DE LA TORRE MD 10/22/1740 interface
--- NOTE | ~2017-10-17 | PR ---
[place], [place] PROGRESS NOTE NAME: [facility]ARK[facility] [id number] UNIT #: [id number] ROOM: 406 DOCTOR: DORYS DE LA TORRE MD,SHADIA BIRTHDATE: [birth year] DOS: 10/23/2017 SUBJECTIVE: She has been noted awake and alert, still noted decreased appetite, not eating much food. She has not been noted any symptoms of chest pain. Denies symptoms of coughing or sputum expectoration ____ noted much more oriented for the patient. OBJECTIVE: VITAL SIGNS: Showed normal temperature, respiratory rate 18, heart rate 74, blood pressure 150/61. Pulse oxygen saturation recorded on room air 95% saturation. HEENT: Showed no acute change. NECK: Supple. CARDIOVASCULAR: S1, S2 is audible. LUNGS: Noted without any crackles. ABDOMEN: Soft, nontender. EXTREMITIES: Without any acute edema. IMPRESSION: 1. Bilateral pleural fluid was noted with possible pneumonia for this patient that has been considered in the left lower lobe versus atelectasis. So far treated with the antibiotics seemed to be responding to treatment. 2. Large hiatal hernia. 3. Severe debility remains persistent. PLAN OF MANAGEMENT: Obtain a chest x-ray of the patient today to reassess the cardiopulmonary process. Radiological assessment. Continuation in the meantime, other previous treatment plan of the patient previously. Usual care. All other supportive plan of management and care. SHADIA SAUL MD CM:PNTRANS [phone] [id number] SHADIA DE LA TORRE MD 10/23/17 2301 interface
--- NOTE | ~2017-10-17 | CON ---
[place], [place] REPORT OF CONSULTATION NAME: JAMAL PARKER [facility] #: [id number] UNIT #: [id number] ROOM: 406 DOCTOR: DORYS DE LA TORRE MDSHADIA BIRTHDATE: [birth year] DOS: 10/18/2017 PULMONARY CONSULTATION, EVALUATION, AND MANAGEMENT REASON FOR CONSULTATION: Assess the patient for current pleural fluid. HISTORY OF PRESENT ILLNESS: The patient was seen and examined personally with [id number] encounter independently. The history of the patient was confirmed from the patient's son independently. Physical examination was performed. All the labs were reviewed. Any changes in the medical management of the patient were personally assessed. The assessment of the patient today was completed personally as well. All the labs were reviewed. The note done by the biomedical instrument technician was approved as well. HISTORY OF PRESENT ILLNESS: This is an 81-year-old white female patient who has been noted with intermittent fall at home over a couple of weeks ago. The patient has been assessed in the [place] for that, and later on transferred from the Emergency Room to [facility] for further assessment. The patient was determined with normal pressure hydrocephalus per the patient's son. The patient underwent a lumbar puncture for this. Since the lumbar puncture was performed on the patient as per son , the patient has not been noted awake. She has not been eating any food and was transferred from [facility] to Group Home Facility at [facility]. She has been brought to the hospital because of progressive unconsciousness status for this patient. She has not been reported with any respiratory distress or shortness of breath. The patient does open his eyes with vocal commands, but does not have any verbal communication or eye contact. REVIEW OF SYSTEMS: Completed by the biomedical instrument technician and agreed with that. PAST MEDICAL HISTORY: Reported with history of coronary artery disease, stage 3, history of hiatal hernia, B-cell lymphoma, which is described in remission, history of normal pressure hydrocephalus, the patient's medical records were not available to confirm that from [facility], hypothyroidism, history of neuropathy, osteopenia, recent history of recurrent fall, and history of UTI as well as urinary incontinence. PAST SURGICAL HISTORY: Reported as: 1. Benign breast biopsy. 2. Bilateral cataract extraction with lens implantation. 3. Cardiac catheterization with coronary artery stent insertion. 4. Surgery of the right foot. 5. Biopsy of the lymph node for the patient. 6. Complete hysterectomy. SOCIAL HISTORY: The patient is currently noted , has 2 children. The patient was living at home prior to recent hospitalization in [facility], currently staying at the Group Home Facility prior to admission to this hospital. There was no past history of tobacco, alcohol, or illicit drug use reported. [place], [place] REPORT OF CONSULTATION NAME: JAMAL PARKER UNIT #: [id number] ROOM: [facility] DOCTOR: DORYS DE LA TORRE MD,SHADIA BIRTHDATE: [birth year] FAMILY HISTORY: Reported as father of this patient at age [age] years old due to complication of lung cancer. Mother from complication related to arthritis at the age of 70+ years old. MEDICATIONS: From prison reported use of metformin, levothyroxine, MiraLax, Mirapex, Zoloft, [place] nasal spray, Colace, famotidine, and insulin. DRUG ALLERGY HISTORY: REPORTED ALLERGY TO LEVAQUIN, CODEINE, FLUOROQUINOLONES, SULFA DRUGS, AND NAPROXEN. PHYSICAL EXAMINATION: GENERAL: An 81-year-old female who has been noted to be opening her eyes with vocal commands, but does not have any eye contact or verbal communication. VITAL SIGNS: Height for the patient recorded as 5 feet 7 inches, weight of 68 kilograms, BMI 23.5. Temperature of the patient was noted 99.2 degree Fahrenheit rectal temperature, there was normal temperatures, respiratory rate 14-19, heart rate of 74, blood pressure 128/50-143/89, pulse oxygen saturation on 2 liters nasal cannula 95% saturation and on room air oxygen 84% saturation was recorded. HEENT: Examination shows head was atraumatic. The patient's eyes are nonicterus. NECK: Supple. CARDIOVASCULAR: S1, S2 is audible. LUNGS: Mild decreased breath sounds in the lower portion of the lung. There was no wheezing or crackles. ABDOMEN: Soft, bowel sounds present. EXTREMITIES: The patient without any edema. CENTRAL NERVOUS SYSTEM: Limited. MUSCULOSKELETAL: Some scoliosis of the spine. LABORATORY DATA: CBC of the patient that was done yesterday, WBC count 21.7, hemoglobin 9.7, hematocrit 34.9, platelet count 393,000. Lactic acid yesterday was normal. CMP of the patient that was done yesterday, BUN 37, creatinine 2.07, glucose 161. Albumin 3.0. Troponin of the patient was noted as normal. CBC of the patient this morning, WBC count decreased to 15,000, hemoglobin 9.2 and hematocrit 30.1, platelet count normal. The PTT of the patient on 10/18/2017 noted with INR 1.3, normal PTT. CMP this morning, BUN 32, creatinine 1.64, glucose 173, potassium 3.3, albumin of 2.3. RADIOLOGIC DATA: The review of the radiology data for the patient pertinent to the chest was personally performed. Chest x-ray of the patient that was done yesterday on admission was noted very rotated film towards the right with some scoliosis, unable to assess accurately the problem on the current chest x-ray abnormality. The patient had a CT scan of the abdomen and pelvis done without contrast, reported by the radiologist's report, distention and moderate wall thickening of the rectum and distal sigmoid, considerable amount of residual fecal debris. Infiltration in the abdominal fat was also reported, may represent colitis, may be infectious, inflammatory, or ischemic in etiology. Large hiatal hernia that I personally visualized present in the chest. [place], [place] REPORT OF CONSULTATION [id number] UNIT #: [id number] ROOM: [facility] DOCTOR: DORYS DE LA TORRE MD,SHADIA BIRTHDATE: [birth year] pleural fluid was noted with area of compression atelectasis in the left lower lobe. There was no gross pulmonary infiltration noted in the visible part of the lower portion of the thorax including CT scan of the abdomen and pelvis. IMPRESSION: 1. The patient who has been noted with persistent mental status changes, possible consideration of sepsis would be considered with leukocytosis, current abdominal problem the focus of origin would be considered abdominal for the patient. 2. The patient with persistent mental status changes. 3. Normal pressure hydrocephalus. Further details were unknown at this time. It also results in worsening mental status. 4. Rule out possibility of meningitis after the recent lumbar puncture for this patient as well. 5. Acute hypoxic respiratory failure secondary to bilateral pleural fluid, most likely related to current ongoing abdominal problem very likely rather than from acute pneumonia and acute incidental finding of large hiatal hernia as well. 6. Debility and protein-calorie malnutrition. 7. Acute kidney injury secondary to the current decreased oral intake for the patient and decreased intravascular volume noted with improvement in BUN and creatinine after the current IV hydration therapy. PLAN OF TREATMENT: The patient has been already getting antibiotics as broad spectrum for coverage of gram-positive and gram-negative organisms. They should be continued. Further assessment of the patient aggressively of the current abdominal problem with the GI or surgical consultation. She was planned for possible transfer to [facility] for the assessment of mental status as requested by the patient's family members and that will be done for the patient by the primary care attending. The patient will be continued on the bronchodilators if necessary to help mobilize secretions. Titrate oxygen supplementation, maintain saturation 92% or greater. The patient does not require any mechanical ventilation support at this time or BiPAP. However, the aspiration precaution coverage is to be done. I will be ordering the prealbumin level of the patient if the patient remains in the hospital. If the patient's GI tract would not be available for feeding, certainly consider use of TPN for this patient for the nutritional support. Other plan and management previously ordered for the patient remains unchanged. Antibiotic broad spectrum of the patient to be changed based on the available culture results. Also, obtain the patient's stool for C. diff toxin if not ordered. Other plan of management of the patient as in progress as well. Supportive care, other therapy, plan of management as well. If the patient remains in the hospital, additional management changes will be made for the patient based on the progression of the illness by tomorrow. Thanks for allowing me to participate in the care of this patient. [place], [place] REPORT OF CONSULTATION NAME: JAMAL PARKER [place] UNIT #: [id number] ROOM: 406 DOCTOR: SHADIA LAZARO MD BIRTHDATE: [birth year] SHADIA SAUL MD CM:CONSTR:REPORT OF CONSULTATION 1520 10/19/17 0459 interface
--- NOTE | ~2017-10-17 | PR ---
[place], [place] PROGRESS NOTE NAME[id number] #: [id number] ROOM: 406 DOCTOR: DORYS DE LA TORRE MD,SHADIA BIRTHDATE: [birth year] DOS: 10/20/2017 SUBJECTIVE: The patient remains awake and alert at this time. Her oral intake was still noted diminished. She has been responding to the vocal commands with interaction for the patient was noted. She was seen today with [id number] encounter, history was confirmed, physical examination was performed, all the lab reviewed, and assessment and management for the patient today's visit were personally completed. Note done by the medical records receptionist was approved. PHYSICAL EXAMINATION: VITAL SIGNS: Reviewed, were noted essentially normal with respiratory rate 20, heart rate 65, blood pressure 163/81. Pulse oxygen saturation on 3 liters nasal cannula 97% saturation recorded. LUNGS: The patient noted with decreased breaths in the low portion lung without any wheeze or crackles. ABDOMEN: Soft, nontender. EXTREMITIES: The patient without any acute deformities. IMPRESSION: The patient with small bilateral pleural fluid with area of atelectasis, rule out pneumonia in the left lower lobe remains questionable at this time, currently treated with antibiotics. PLAN OF TREATMENT: The patient's antibiotic broad spectrum could be switched to the oral doxycycline and IV Rocephin for coverage of pneumonia if necessary. Other previous treatment plan and management to be continued. Nutritional support to be addressed by the primary care attending for this patient as well. In the meantime, other supportive plan of therapy as previously in progress will be continued. SHADIA SAUL MD CM:PNTRANS [id number] SHADIA DE LA TORRE MD 10/21/17 0104 interface
[~2017-10-17 18:25] MED LIST changes: +HUMALOG100 UNIT/1 SQ; -LANTUS SOL100 UNIT/1 SQ; -METFORMIN HCL1000 MG PO; +METFORMIN500 MG PO
[2017-10-17 18:55] LABS: BILIRUBIN 2+ (NEGATIVE); BLOOD NEGATIVE (NEGATIVE); CLARITY SL CLOUDY (CLEAR); COLOR YELLOW (YELLOW); GLUCOSE NEGATIVE (NEGATIVE); KETONE TRACE (NEGATIVE); LEUKO ESTERASE 2+ (NEGATIVE); NITRITE NEGATIVE (NEGATIVE); SPECIFIC GRAVITY >= 1.030 (1.005-1.030); UROBILINOGEN 0.2 E.U./dl (0.2-1.0)
[2017-10-17 19:01] LABS: BACTERIA 4+; RBC 0-2 rbc/hpf (0-2); YEAST 1+
[2017-10-17 19:14] LABS: BASO # 0.1 10*3/uL (0.0-0.1); BASO % 0.3 % (0.0-1.0); EOS # 0.3 10*3/uL (0.0-0.4); EOS % 1.1 % (1.0-4.0); HEMATOCRIT 34.9 % (37.0-47.0); HEMOGLOBIN 10.7 g/dl (12.0-16.0); LYMPH # 1.9 10*3/uL (1.3-4.4); LYMPH % 8.7 % (27.0-41.0); MEAN CELL VOLUME 81.2 fl (81.0-99.0); MEAN CORPUSCULAR HGB 24.9 pg (27.0-31.0); MEAN CORPUSCULAR HGB CONC 30.7 g/dl (33.0-37.0); MONO # 1.1 10*3/uL (0.1-1.0); MONO % 4.8 % (3.0-9.0); NEUT # 18.4 10*3/uL (2.3-7.9); NEUT % 84.5 % (47.0-73.0); PLATELET COUNT AUTOMATED 393 10*3/uL (130-400); RED CELL DISTRI WIDTH 18.9 % (0-14.5); WHITE BLOOD COUNT 21.7 10*3/uL (4.8-10.8)
[2017-10-17 19:32] LABS: CREATININE 2.07 mg/dL (0.55-1.02); POTASSIUM 3.5 mmol/L (3.5-5.1); TOTAL PROTEIN 7.1 gm/dL (6.4-8.2)
[2017-10-18] VITALS: BP 143/89
[2017-10-18] MEDS ORDERED: HUMALOG100 UNIT/1 SQ (01:25)
[2017-10-18] MEDS ORDERED: SALINE NOSE SPR45 ML NAS (01:26)
[2017-10-18] MEDS ORDERED: FAMOTIDINE20 M1 PO (01:29)
[2017-10-18] MEDS ORDERED: DOCUSATE SODIU100 M2 PO (01:31)
[2017-10-18] MEDS ORDERED: MIRALAX119 GM PO (01:32)
[2017-10-18] MEDS ORDERED: LACTULOSE20 GM/30 M PO (01:33)
[2017-10-18] MEDS ORDERED: BISACODYL10 MG R (01:35)
[2017-10-18 04:00] VITALS: BP 141/83
[2017-10-18 05:59] LABS: ALBUMIN 2.3 gm/dl (3.1-4.5); CREATININE 1.64 mg/dL (0.55-1.02); PHOSPHOROUS 3.4 mg/dL (2.5-4.9); POTASSIUM 3.3 mmol/L (3.5-5.1); TOTAL PROTEIN 5.7 gm/dL (6.4-8.2)
[2017-10-18 06:01] LABS: BASO % 0.2 % (0.0-1.0); EOS # 0.5 10*3/uL (0.0-0.4); HEMATOCRIT 30.1 % (37.0-47.0); HEMOGLOBIN 9.2 g/dl (12.0-16.0); LYMPH # 1.6 10*3/uL (1.3-4.4); LYMPH % 10.4 % (27.0-41.0); MEAN CELL VOLUME 82.5 fl (81.0-99.0); MEAN CORPUSCULAR HGB 25.2 pg (27.0-31.0); MEAN CORPUSCULAR HGB CONC 30.6 g/dl (33.0-37.0); MEAN PLATELET VOLUME 10.2 fl (9.6-12.3); MONO # 0.8 10*3/uL (0.1-1.0); MONO % 5.1 % (3.0-9.0); NEUT # 12.1 10*3/uL (2.3-7.9); NEUT % 80.7 % (47.0-73.0); PLATELET COUNT AUTOMATED 339 10*3/uL (130-400); RED BLOOD COUNT 3.65 10*6/uL (4.10-5.10); RED CELL DISTRI WIDTH 18.6 % (0-14.5)
[2017-10-18 06:03] LABS: ACT PARTIAL THROMBO TIME 30.8 SECONDS (20.8-31.5); INTERNATIONAL NORM RATIO 1.3 (2.0-3.5)
[2017-10-18 06:05] LABS: FREE T4 1.2 ng/dl (0.76-1.46); THYROID STIM HORMONE (HS) 1.19 uIU/ml (0.358-4.75)
[2017-10-18 08:00] VITALS: BP 144/61
[2017-10-18 09:53] LABS: VITAMIN D, 25-HYDROXY 19.6 ng/mL (30-100)
[2017-10-18 12:00] VITALS: BP 138/60
[2017-10-18 16:00] VITALS: BP 143/59
[2017-10-18 20:00] VITALS: BP 152/64
[2017-10-19] VITALS: BP 150/58
[2017-10-19 07:26] LABS: BASO % 0.5 % (0.0-1.0); EOS # 0.3 10*3/uL (0.0-0.4); EOS % 3.8 % (1.0-4.0); HEMATOCRIT 29.9 % (37.0-47.0); HEMOGLOBIN 9.1 g/dl (12.0-16.0); LYMPH # 1.6 10*3/uL (1.3-4.4); LYMPH % 17.9 % (27.0-41.0); MEAN CELL VOLUME 81.5 fl (81.0-99.0); MEAN CORPUSCULAR HGB 24.8 pg (27.0-31.0); MEAN CORPUSCULAR HGB CONC 30.4 g/dl (33.0-37.0); MEAN PLATELET VOLUME 9.9 fl (9.6-12.3); MONO # 0.6 10*3/uL (0.1-1.0); MONO % 6.5 % (3.0-9.0); NEUT # 6.2 10*3/uL (2.3-7.9); NEUT % 70.5 % (47.0-73.0); PLATELET COUNT AUTOMATED 318 10*3/uL (130-400); RED BLOOD COUNT 3.67 10*6/uL (4.10-5.10); RED CELL DISTRI WIDTH 18.4 % (0-14.5); WHITE BLOOD COUNT 8.8 10*3/uL (4.8-10.8)
[2017-10-19 07:56] LABS: ALBUMIN 2.3 gm/dl (3.1-4.5); CREATININE 1.08 mg/dL (0.55-1.02); PHOSPHOROUS 2.1 mg/dL (2.5-4.9); POTASSIUM 3.1 mmol/L (3.5-5.1); TOTAL PROTEIN 5.7 gm/dL (6.4-8.2)
[2017-10-19 08:00] VITALS: BP 174/64
[2017-10-19 12:00] VITALS: BP 172/80
[2017-10-19 16:00] VITALS: BP 145/60
[2017-10-19 20:00] VITALS: BP 172/64
[2017-10-20] VITALS (8 sets, daily range): BP systolic 132–176; BP diastolic 50–84
[2017-10-20 07:04] LABS: BASO % 0.4 % (0.0-1.0); EOS # 0.1 10*3/uL (0.0-0.4); EOS % 1.3 % (1.0-4.0); HEMATOCRIT 27.4 % (37.0-47.0); HEMOGLOBIN 8.7 g/dl (12.0-16.0); LYMPH # 1.8 10*3/uL (1.3-4.4); LYMPH % 17.5 % (27.0-41.0); MEAN CELL VOLUME 79.7 fl (81.0-99.0); MEAN CORPUSCULAR HGB 25.3 pg (27.0-31.0); MEAN CORPUSCULAR HGB CONC 31.8 g/dl (33.0-37.0); MEAN PLATELET VOLUME 9.8 fl (9.6-12.3); MONO # 0.8 10*3/uL (0.1-1.0); MONO % 7.6 % (3.0-9.0); NEUT # 7.4 10*3/uL (2.3-7.9); NEUT % 72.5 % (47.0-73.0); PLATELET COUNT AUTOMATED 331 10*3/uL (130-400); RED BLOOD COUNT 3.44 10*6/uL (4.10-5.10); RED CELL DISTRI WIDTH 17.9 % (0-14.5); WHITE BLOOD COUNT 10.3 10*3/uL (4.8-10.8)
[2017-10-20 07:31] LABS: ALBUMIN 2.4 gm/dl (3.1-4.5); ALKALINE PHOSPHATASE 44 U/L (45-117); BUN 9 mg/dl (7-24); CHLORIDE 105 mmol/L (98-107); CREATININE 0.95 mg/dL (0.55-1.02); PHOSPHOROUS 2.5 mg/dL (2.5-4.9); SGOT/AST 10 IU/L (3-35); SGPT/ALT 9 U/L (12-78); SODIUM 142 mmol/L (136-145); TOTAL PROTEIN 5.5 gm/dL (6.4-8.2)
[2017-10-21] VITALS: BP 164/64
[2017-10-21 07:23] LABS: BASO % 0.5 % (0.0-1.0); EOS # 0.2 10*3/uL (0.0-0.4); EOS % 2.3 % (1.0-4.0); HEMATOCRIT 30.8 % (37.0-47.0); HEMOGLOBIN 9.7 g/dl (12.0-16.0); LYMPH # 0.8 10*3/uL (1.3-4.4); LYMPH % 9.5 % (27.0-41.0); MEAN CELL VOLUME 79.6 fl (81.0-99.0); MEAN CORPUSCULAR HGB 25.1 pg (27.0-31.0); MEAN CORPUSCULAR HGB CONC 31.5 g/dl (33.0-37.0); MEAN PLATELET VOLUME 9.5 fl (9.6-12.3); MONO # 0.5 10*3/uL (0.1-1.0); MONO % 6.6 % (3.0-9.0); NEUT # 6.4 10*3/uL (2.3-7.9); NEUT % 80.2 % (47.0-73.0); PLATELET COUNT AUTOMATED 317 10*3/uL (130-400); RED BLOOD COUNT 3.87 10*6/uL (4.10-5.10); RED CELL DISTRI WIDTH 17.6 % (0-14.5); WHITE BLOOD COUNT 7.9 10*3/uL (4.8-10.8)
[2017-10-21 07:46] LABS: BUN 7 mg/dl (7-24); CHLORIDE 102 mmol/L (98-107); CREATININE 0.82 mg/dL (0.55-1.02); PHOSPHOROUS 2.6 mg/dL (2.5-4.9); POTASSIUM 2.9 mmol/L (3.5-5.1); SODIUM 140 mmol/L (136-145)
[2017-10-21 08:00] VITALS: BP 149/59
[2017-10-21 12:00] VITALS: BP 151/62
[2017-10-21 16:00] VITALS: BP 150/64
[2017-10-21 20:00] VITALS: BP 118/61
[2017-10-22] VITALS: BP 141/50
[2017-10-22 07:18] LABS: BASO % 0.5 % (0.0-1.0); EOS # 0.2 10*3/uL (0.0-0.4); EOS % 2.6 % (1.0-4.0); HEMATOCRIT 29.8 % (37.0-47.0); HEMOGLOBIN 9.3 g/dl (12.0-16.0); LYMPH # 0.4 10*3/uL (1.3-4.4); MEAN CELL VOLUME 79.9 fl (81.0-99.0); MEAN CORPUSCULAR HGB 24.9 pg (27.0-31.0); MEAN CORPUSCULAR HGB CONC 31.2 g/dl (33.0-37.0); MEAN PLATELET VOLUME 9.5 fl (9.6-12.3); MONO # 0.5 10*3/uL (0.1-1.0); NEUT # 7.3 10*3/uL (2.3-7.9); NEUT % 85.2 % (47.0-73.0); PLATELET COUNT AUTOMATED 295 10*3/uL (130-400); RED BLOOD COUNT 3.73 10*6/uL (4.10-5.10); RED CELL DISTRI WIDTH 17.8 % (0-14.5); WHITE BLOOD COUNT 8.6 10*3/uL (4.8-10.8)
[2017-10-22 07:49] LABS: CHLORIDE 102 mmol/L (98-107); SODIUM 139 mmol/L (136-145)
[2017-10-22 07:56] LABS: ALBUMIN 2.3 gm/dl (3.1-4.5); ALKALINE PHOSPHATASE 41 U/L (45-117); BUN 7 mg/dl (7-24); CREATININE 0.93 mg/dL (0.55-1.02); PHOSPHOROUS 1.7 mg/dL (2.5-4.9); SGOT/AST 10 IU/L (3-35); SGPT/ALT 9 U/L (12-78); TOTAL PROTEIN 5.3 gm/dL (6.4-8.2)
[2017-10-22 08:00] VITALS: BP 144/53
[2017-10-22 12:00] VITALS: BP 148/58
[2017-10-22 16:00] VITALS: BP 151/49
[2017-10-22 20:00] VITALS: BP 150/59
[2017-10-23] VITALS: BP 150/54
[2017-10-23 07:49] LABS: BASO % 0.4 % (0.0-1.0); EOS # 0.4 10*3/uL (0.0-0.4); EOS % 7.7 % (1.0-4.0); HEMATOCRIT 28.2 % (37.0-47.0); HEMOGLOBIN 8.9 g/dl (12.0-16.0); LYMPH # 0.7 10*3/uL (1.3-4.4); LYMPH % 12.5 % (27.0-41.0); MEAN CELL VOLUME 80.3 fl (81.0-99.0); MEAN CORPUSCULAR HGB 25.4 pg (27.0-31.0); MEAN CORPUSCULAR HGB CONC 31.6 g/dl (33.0-37.0); MEAN PLATELET VOLUME 9.5 fl (9.6-12.3); MONO # 0.5 10*3/uL (0.1-1.0); MONO % 9.5 % (3.0-9.0); NEUT # 3.9 10*3/uL (2.3-7.9); NEUT % 68.7 % (47.0-73.0); PLATELET COUNT AUTOMATED 278 10*3/uL (130-400); RED BLOOD COUNT 3.51 10*6/uL (4.10-5.10); RED CELL DISTRI WIDTH 17.9 % (0-14.5); WHITE BLOOD COUNT 5.7 10*3/uL (4.8-10.8)
[2017-10-23 08:00] VITALS: BP 150/61
[2017-10-23 08:20] LABS: ALBUMIN 2.3 gm/dl (3.1-4.5); ALKALINE PHOSPHATASE 40 U/L (45-117); BUN 7 mg/dl (7-24); CHLORIDE 102 mmol/L (98-107); CREATININE 0.81 mg/dL (0.55-1.02); PHOSPHOROUS 2.5 mg/dL (2.5-4.9); POTASSIUM 3.1 mmol/L (3.5-5.1); SGOT/AST 15 IU/L (3-35); SGPT/ALT 10 U/L (12-78); SODIUM 139 mmol/L (136-145); TOTAL PROTEIN 5.2 gm/dL (6.4-8.2)
[2017-10-23 12:00] VITALS: BP 168/62
[2017-10-23 16:00] VITALS: BP 164/59
[2017-10-23 20:00] VITALS: BP 141/69; BP 143/67
[2017-10-24] VITALS: BP 151/57
[2017-10-24 08:00] VITALS: BP 138/52
[2017-10-24 12:00] VITALS: BP 136/54
[2017-10-24] MEDS ORDERED: VIBRA-TAB100 MG PO (15:23)
[2017-10-24] MEDS ORDERED: KLOR-CON M2020 ME1 PO (15:23)
[2017-10-24] MEDS ORDERED: FLAGYL500 MG PO (15:23)
[2017-10-24] MEDS ORDERED: Vitamin D PO (15:23)
[2017-10-24 16:00] VITALS: BP 155/70
== END 2017-10-24 18:49 | disposition other institution (70) | DRG 393 ==
LOC: ED 18:25 → ICCU 21:34 → EDHOLD 21:34 → 4E 21:34 → ICCU 22:30 → 4E 10-18 20:43
PROVIDERS: Emergency Medicine; Hospitalist; Internal Medicine; Internal Medicine Hospice and Palliative Medicine; Internal Medicine Nephrology
PROC: 0DBN8ZX Excision of Sigmoid Colon, Via Natural or Artificial Opening Endoscopic, Diagnostic (ICD-10-PCS; principal; 2017-10-20)
DX: K55.9 Vascular disorder of intestine, unspecified (principal); G93.41 Metabolic encephalopathy; N17.0 Acute kidney failure with tubular necrosis; J96.01 Acute respiratory failure with hypoxia; J15.6 Pneumonia due to other Gram-negative bacteria; J90 Pleural effusion, not elsewhere classified; E44.0 Moderate protein-calorie malnutrition; G91.9 Hydrocephalus, unspecified; E11.22 Type 2 diabetes mellitus with diabetic chronic kidney disease; A09 Infectious gastroenteritis and colitis, unspecified; E87.0 Hyperosmolality and hypernatremia; I50.32 Chronic diastolic (congestive) heart failure; N39.0 Urinary tract infection, site not specified; J98.11 Atelectasis; N18.3 Chronic kidney disease, stage 3 (moderate); E87.6 Hypokalemia; E87.8 Other disorders of electrolyte and fluid balance, not elsewhere classified; E83.39 Other disorders of phosphorus metabolism; E86.0 Dehydration; D64.9 Anemia, unspecified; R29.6 Repeated falls; R32 Unspecified urinary incontinence; Z85.72 Personal history of non-Hodgkin lymphomas; I25.10 Atherosclerotic heart disease of native coronary artery without angina pectoris; E03.9 Hypothyroidism, unspecified; K21.9 Gastro-esophageal reflux disease without esophagitis; E11.65 Type 2 diabetes mellitus with hyperglycemia; E78.2 Mixed hyperlipidemia; M85.80 Other specified disorders of bone density and structure, unspecified site; E67.8 Other specified hyperalimentation; E87.5 Hyperkalemia; G31.9 Degenerative disease of nervous system, unspecified; Z53.29 Procedure and treatment not carried out because of patient's decision for other reasons; K57.30 Diverticulosis of large intestine without perforation or abscess without bleeding; K44.9 Diaphragmatic hernia without obstruction or gangrene; K59.00 Constipation, unspecified; Z87.440 Personal history of urinary (tract) infections; Y95 Nosocomial condition; E11.40 Type 2 diabetes mellitus with diabetic neuropathy, unspecified; Z88.1 Allergy status to other antibiotic agents; Z88.2 Allergy status to sulfonamides; Z88.6 Allergy status to analgesic agent; Z88.8 Allergy status to other drugs, medicaments and biological substances; Z79.84 Long term (current) use of oral hypoglycemic drugs; Z79.4 Long term (current) use of insulin; Z95.5 Presence of coronary angioplasty implant and graft; Z98.42 Cataract extraction status, left eye; Z98.41 Cataract extraction status, right eye; Z90.710 Acquired absence of both cervix and uterus; Z82.61 Family history of arthritis; Z80.1 Family history of malignant neoplasm of trachea, bronchus and lung; Z81.2 Family history of tobacco abuse and dependence; Z82.49 Family history of ischemic heart disease and other diseases of the circulatory system; Z68.23 Body mass index [BMI] 23.0-23.9, adult

== ENCOUNTER → 2018-05-31 | Outpatient (CLI) | payer MEDICARE, OTHER ==
[~2018-05-31] MED LIST changes: +BISACODYL10 MG R; +DOCUSATE SODIU100 M2 PO; +FAMOTIDINE20 M1 PO; +FLAGYL500 MG PO; +KLOR-CON M2020 ME1 PO; +LACTULOSE20 GM/30 M PO; +MIRALAX119 GM PO; +SALINE NOSE SPR45 ML NAS; +VIBRA-TAB100 MG PO; +Vitamin D PO
== END ==
LOC: MRI 04:42
DX: S76.011A Strain of muscle, fascia and tendon of right hip, initial encounter (principal); M16.11 Unilateral primary osteoarthritis, right hip; X58.XXXA Exposure to other specified factors, initial encounter; Y93.89 Activity, other specified; Y92.89 Other specified places as the place of occurrence of the external cause; Y99.8 Other external cause status

== ENCOUNTER 2018-10-19 03:01 | Inpatient (IN) | payer MEDICARE, OTHER ==
[~2018-10-19] VITALS: Ht 157.5 cm; Wt 81.6 kg
--- NOTE | ~2018-10-19 | EKG ---
[place], [place] ELECTROCARDIOGRAM REPORT NAME: JAMAL PARKER UNIT #: [id number] ROOM: 407 DOCTOR: EPIPHANY DRAFT REPORT BIRTHDATE: [birth year] [facility] Test Date: 2018-10-19 Test Time: 03:19:46 Pat Name: JAMAL PARKER Department: Room: 407 Gender: F Activity Therapy Teacher: Cristina Redman : 1935 Requested By: ESPERANZA POSEY Order Number: [id number] Reading MD: Clement Yeh MD Measurements Intervals [place] Rate: 87 P: 52 CO: 172 QRS: -29 QRSD: 91 T: 81 QT: 370 QTc: 445 Interpretive Statements Sinus rhythm Borderline left axis deviation Abnormal R-wave progression, late transition Borderline T abnormalities, lateral leads Electronically Signed On 10-20-2018 11:46:55 PST by Clement Yeh MD CM:EKGRPT:ELECTROCARDIOGRAM REPORT [id number] ESPERANZA POSEY MD EPIPHANY DRAFT REPORT ESPERANZA POSEY MD
[2018-10-19 03:01] VITALS: BP 102/40
[2018-10-19 03:38] LABS: BASO % 0.1 % (0.0-1.0); EOS # 0.2 10*3/uL (0.0-0.4); EOS % 2.4 % (1.0-4.0); HEMATOCRIT 31.8 % (37.0-47.0); HEMOGLOBIN 10.4 g/dl (12.0-16.0); LYMPH # 0.6 10*3/uL (1.3-4.4); LYMPH % 7.2 % (27.0-41.0); MEAN CELL VOLUME 80.1 fl (81.0-99.0); MEAN CORPUSCULAR HGB 26.2 pg (27.0-31.0); MEAN CORPUSCULAR HGB CONC 32.7 g/dl (33.0-37.0); MONO # 0.6 10*3/uL (0.1-1.0); MONO % 7.2 % (3.0-9.0); NEUT # 6.6 10*3/uL (2.3-7.9); NEUT % 82.7 % (47.0-73.0); PLATELET COUNT AUTOMATED 183 10*3/uL (130-400); RED BLOOD COUNT 3.97 10*6/uL (4.10-5.10); RED CELL DISTRI WIDTH 15.7 % (0-14.5)
[2018-10-19 03:44] LABS: BILIRUBIN NEGATIVE (NEGATIVE); BLOOD NEGATIVE (NEGATIVE); CLARITY CLEAR (CLEAR); COLOR YELLOW (YELLOW); GLUCOSE NEGATIVE (NEGATIVE); KETONE NEGATIVE (NEGATIVE); LEUKO ESTERASE 1+ (NEGATIVE); NITRITE NEGATIVE (NEGATIVE); PH 6.5 (5.0-9.0); SPECIFIC GRAVITY <= 1.005 (1.005-1.030); UROBILINOGEN 0.2 E.U./dl (0.2-1.0)
[2018-10-19] MEDS ORDERED: TRAD5TAB1 PO (03:45)
[2018-10-19] MEDS ORDERED: CYMBALTA60 MG PO (03:45)
[2018-10-19] MEDS ORDERED: GLUCAGON EMERGEN1 M1 IJ (03:46)
[2018-10-19] MEDS ORDERED: SINEMET 25-2501 EACH PO (03:46)
[2018-10-19 03:50] LABS: ACT PARTIAL THROMBO TIME 25.5 SECONDS (20.8-31.5); INTERNATIONAL NORM RATIO 1.1 (2.0-3.5)
[2018-10-19 03:54] LABS: ALBUMIN 2.9 gm/dl (3.1-4.5); ALKALINE PHOSPHATASE 69 U/L (45-117); BUN 45 mg/dl (7-24); CHLORIDE 106 mmol/L (98-107); CREATININE 2.41 mg/dL (0.55-1.02); LIPASE 84 U/L (73-393); SGOT/AST 12 IU/L (3-35); SGPT/ALT 10 U/L (12-78); SODIUM 140 mmol/L (136-145); TOTAL PROTEIN 6.1 gm/dL (6.4-8.2)
[2018-10-19 03:55] LABS: TROPONIN I < 0.015 ng/ml (<0.045)
--- NOTE | 2018-10-19 04:00 | NUR ---
LEFT HAND IV LEAKING AT THIS TIME, IV SITE DISCONTINUED.
[2018-10-19] MEDS ORDERED: MELATONIN3 MG PO (04:01)
[2018-10-19] MEDS ORDERED: TYLENOL325 M1 PO (04:02)
[2018-10-19] MEDS ORDERED: TRAMADOL HCL50 MG PO (04:02)
[2018-10-19] MEDS ORDERED: ATARAX,VISTARIL50 MG PO (04:03)
[2018-10-19] MEDS ORDERED: NYSTATIN CREAM15 GM T (04:03)
[2018-10-19] MEDS ORDERED: NEURONTIN100 MG PO (04:04)
[2018-10-19] MEDS ORDERED: KENALOG 0.1%80 GM T (04:05)
[2018-10-19] MEDS ORDERED: LANTUS SOL100 UNIT/1 SQ (04:05)
[2018-10-19] MEDS ORDERED: TORSEMIDE20 MG PO (04:06)
[2018-10-19] MEDS ORDERED: KEFLEX500 M1 PO (04:06)
[2018-10-19] MEDS ORDERED: DIFLUCAN150 MG PO (04:07)
--- NOTE | 2018-10-19 05:33 | NUR ---
SPOKE WITH STEVAN ARIAS ON 4TH FLOOR SHE IS REQUESTING 5-10 MIN UNTIL SHE IS READY FOR THE PATIENT
[2018-10-19 05:50] VITALS: BP 118/40
--- NOTE | 2018-10-19 05:50 | NUR ---
A 82, admitted to , under the services of ANNETTA Wong DO with a diagnosis of PNEUMONIA AND SEPSIS. Chief complaint is SOB, NOT FEELING WELL. Patient arrived via ambulance from ER. Monitor applied. Initial assessment completed. Vital signs taken and recorded. ANNETTA WONG DO notified of admission to the unit. Orders received. See assessment for past medical history, medications and allergies. Patient and/or family oriented to unit. [facility] visitation policy reviewed. Clothing/patient valuable form completed. ALFONSO TONG
[2018-10-19] MEDS ORDERED: VISTARIL50 MG PO (06:06)
--- NOTE | 2018-10-19 06:35 | NUR ---
SPOKE WITH GIULIANA FROM [facility] AND GAVE HER UPDATE ON PATIENT STATUS.
[2018-10-19] MEDS ORDERED: SINEMET 25-1001 EACH PO (06:48)
[2018-10-19] MEDS ORDERED: MIRALAX17 GM PO (06:50)
[2018-10-19] MEDS ORDERED: HUMALOG JU100 UNIT/1 SQ (06:52)
--- NOTE | 2018-10-19 07:59 | NUR ---
Requested and medicated with Tylenol at 0600 for complaints of REICH rated a 9/10. Tylenol effective to decrease REICH and allow to rest quietly.
--- NOTE | 2018-10-19 08:36 | NUR ---
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
--- NOTE | 2018-10-19 09:00 | NUR ---
SHAYY DISCONTINUED PER DR. YUAN ORDER. PT TOLERATED. CALL LIGHT IN REACH. BED ALARM ON.
[2018-10-19 09:32] VITALS: BP 104/62
--- NOTE | 2018-10-19 10:20 | NUR ---
RESTING IN BED WITH EYES CLOSED. AWAKENS EASILY. DROWSY. TOLERATED ROUTINE MED WITH NO PROBLEM. CALL LIGHT IN REACH. BED ALARM ON.
[2018-10-19 12:00] VITALS: BP 121/47
--- NOTE | 2018-10-19 13:20 | NUR ---
DAUGHTER IN TO SEE PT. PT STILL DROWSY, AWAKENS BUT GOES BACK TO SLEEP. OXYGEN IN USE. NO C/O AT THIS TIME. CALL LIGHT IN REACH. BED ALARM ON.
--- NOTE | 2018-10-19 15:27 | NUR ---
ASSUMED CARE OF PATIENT AT THIS TIME. RESTING COMFORTABLY IN HER BED AT THIS TIME. NO S/S OF DISTRESS, REPOSITIONED FOR COMFORT. CALL LIGHT WITHIN REACH.
[2018-10-19 16:00] VITALS: BP 121/41
--- NOTE | 2018-10-19 21:05 | NUR ---
PATIENT STATES SHE IS NOT FEELING VERY WELL. BLOOD SUGAR CHECKED READING CRITICAL HIGH. ACCU CHECK READING 559. STAT GLUCOSE REFLEX ORDERED. WAITING ON RESULTS.
--- NOTE | 2018-10-19 21:41 | NUR ---
PATIENT MEDICATED WITH RESTORIL. PATIENT VERY ANXIOUS BECAUSE OF CRITICALLY HIGH BLOOD SUGAR. PATIENT WANTING SOMETHING TO HELP SLEEP. WILL CONTINUE TO MONITOR.
--- NOTE | 2018-10-19 22:53 | NUR ---
RECHECKED PATIENT BLOOD SUGAR. STILL READING CRITICALLY HIGH AT [address] JOHNSON NOTIFIED. TOLD TO COVER PER SLIDING SCALE ONCE GLUCOSE REFLUX COMES BACK. WILL CONTINUE TO MONTIOR.
[2018-10-20] VITALS: BP 98/53
[2018-10-20 06:55] LABS: BASO % 0.1 % (0.0-1.0); EOS % 0.1 % (1.0-4.0); HEMOGLOBIN 11.1 g/dl (12.0-16.0); LYMPH # 0.8 10*3/uL (1.3-4.4); LYMPH % 8.2 % (27.0-41.0); MEAN CORPUSCULAR HGB 25.3 pg (27.0-31.0); MEAN CORPUSCULAR HGB CONC 30.8 g/dl (33.0-37.0); MEAN PLATELET VOLUME 10.7 fl (9.6-12.3); MONO # 0.3 10*3/uL (0.1-1.0); MONO % 2.5 % (3.0-9.0); NEUT # 8.8 10*3/uL (2.3-7.9); NEUT % 88.7 % (47.0-73.0); PLATELET COUNT AUTOMATED 201 10*3/uL (130-400); RED BLOOD COUNT 4.39 10*6/uL (4.10-5.10); RED CELL DISTRI WIDTH 15.9 % (0-14.5); WHITE BLOOD COUNT 9.9 10*3/uL (4.8-10.8)
[2018-10-20 07:04] LABS: ALBUMIN 3.2 gm/dl (3.1-4.5); CREATININE 2.39 mg/dL (0.55-1.02); FREE T4 1.09 ng/dl (0.76-1.46); PHOSPHOROUS 3.3 mg/dL (2.5-4.9); POTASSIUM 3.9 mmol/L (3.5-5.1); TOTAL PROTEIN 7.3 gm/dL (6.4-8.2)
[2018-10-20 07:09] LABS: THYROID STIM HORMONE (HS) 0.393 uIU/ml (0.358-4.75)
[2018-10-20 12:00] VITALS: BP 116/60
[2018-10-20 16:00] VITALS: BP 138/53
[2018-10-20 20:00] VITALS: BP 129/49
[2018-10-21] VITALS: BP 97/73
--- NOTE | 2018-10-21 02:22 | NUR ---
PATIENT MEDICATED WITH TYLENOL PER DRS ORDERS FOR COMPLAINTS OF HEADACHE. RN WILL CONTINUE TO MONITOR
--- NOTE | 2018-10-21 03:30 | NUR ---
PATIENT STATES EARLIER MEDICATION WAS EFFECTIVE
[2018-10-21 08:00] VITALS: BP 125/54
--- NOTE | 2018-10-21 11:26 | NUR ---
PT ASSSITED OUT OF BED IN TO RECLINER CHAIR WITH 2 ASSISTS NEEDED.
[2018-10-21 12:00] VITALS: BP 154/54
[2018-10-21] MEDS ORDERED: PREDNISONE10 MG PO (13:53)
[2018-10-21] MEDS ORDERED: ZITHROMAX250 MG PO (13:59)
--- NOTE | 2018-10-21 14:41 | NUR ---
PT'S DAUGHTER AT BEDSIDE AND AWARE OF DISCHARGE BACK TO [facility] TODAY.
--- NOTE | 2018-10-21 14:41 | NUR ---
Discharge instructions reviewed with patient/family. Patient receptive and verbalizes understanding. Follow-up care arranged. Written instructions given to patient/family. SARAY HOGAN
--- NOTE | 2018-10-21 15:20 | NUR ---
REPORT GIVEN TO NURSE TROY AT [facility]. [facility] HERE TO TRANSPORT PT TO [facility].
[2018-11-18] MEDS ORDERED: Ipratropium Brom3 ML INH (13:58)
[2018-11-18] MEDS ORDERED: ZOFRAN8 M1 PO (13:59)
[2018-11-18] MEDS ORDERED: POTASSIUM CHLO20 ME3 PO (14:01)
[2018-11-22] MEDS ORDERED: CEFTAZIDIM1 GM/50 ML IV (14:04)
[2018-11-22] MEDS ORDERED: VITAMIN D32000 UNI1 PO (15:13)
== END 2018-10-21 15:20 | DRG 871 ==
LOC: ED 03:01 → EDHOLD 04:54 → 4E 05:19
PROVIDERS: Emergency Medicine Emergency Medical Services; Family Medicine; ADMIT Internal Medicine
DX: A41.9 Sepsis, unspecified organism (principal); J18.1 Lobar pneumonia, unspecified organism; G93.41 Metabolic encephalopathy; N17.0 Acute kidney failure with tubular necrosis; E43 Unspecified severe protein-calorie malnutrition; J90 Pleural effusion, not elsewhere classified; N30.00 Acute cystitis without hematuria; I50.32 Chronic diastolic (congestive) heart failure; I13.0 Hypertensive heart and chronic kidney disease with heart failure and stage 1 through stage 4 chronic kidney disease, or unspecified chronic kidney disease; J98.11 Atelectasis; N18.3 Chronic kidney disease, stage 3 (moderate); E83.51 Hypocalcemia; D72.810 Lymphocytopenia; D72.9 Disorder of white blood cells, unspecified; R79.82 Elevated C-reactive protein (CRP); E11.65 Type 2 diabetes mellitus with hyperglycemia; I25.10 Atherosclerotic heart disease of native coronary artery without angina pectoris; E03.9 Hypothyroidism, unspecified; K21.9 Gastro-esophageal reflux disease without esophagitis; E78.5 Hyperlipidemia, unspecified; M85.89 Other specified disorders of bone density and structure, multiple sites; N39.46 Mixed incontinence; E11.40 Type 2 diabetes mellitus with diabetic neuropathy, unspecified; K58.9 Irritable bowel syndrome, unspecified; K59.00 Constipation, unspecified; R53.1 Weakness; Z66 Do not resuscitate; Z51.5 Encounter for palliative care; D50.9 Iron deficiency anemia, unspecified; G47.00 Insomnia, unspecified; E11.22 Type 2 diabetes mellitus with diabetic chronic kidney disease; G20 Parkinson's disease; F02.80 Dementia in other diseases classified elsewhere, unspecified severity, without behavioral disturbance, psychotic disturbance, mood disturbance, and anxiety; F41.9 Anxiety disorder, unspecified; Z79.4 Long term (current) use of insulin; Z88.1 Allergy status to other antibiotic agents; Z88.5 Allergy status to narcotic agent; Z88.2 Allergy status to sulfonamides; Z87.440 Personal history of urinary (tract) infections; Z95.5 Presence of coronary angioplasty implant and graft; Z98.42 Cataract extraction status, left eye; Z98.41 Cataract extraction status, right eye; Z90.710 Acquired absence of both cervix and uterus; Z82.61 Family history of arthritis; Z80.1 Family history of malignant neoplasm of trachea, bronchus and lung; Z82.49 Family history of ischemic heart disease and other diseases of the circulatory system; Z81.2 Family history of tobacco abuse and dependence; Z79.899 Other long term (current) drug therapy; Z68.32 Body mass index [BMI] 32.0-32.9, adult

== ENCOUNTER 2019-01-05 00:46 | Emergency (ER) | payer MEDICARE, OTHER ==
[~2019-01-05] VITALS: Wt 70.8 kg
--- NOTE | ~2019-01-05 | EKG ---
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
[~2019-01-05 00:46] MED LIST changes: +AMINOPHYLLIN200 MG PO; +ATARAX,VISTARIL50 MG PO; +CEFTAZIDIM1 GM/50 ML IV; +CYMBALTA60 MG PO; +GLUCAGON EMERGEN1 M1 IJ; +HUMALOG JU100 UNIT/1 SQ; +Ipratropium Brom3 ML INH; +KEFLEX500 M1 PO; +KENALOG 0.1%80 GM T; +LANTUS SOL100 UNIT/1 SQ; +MELATONIN3 MG PO; +MIRALAX17 GM PO; +NEURONTIN100 MG PO; +NYSTATIN CREAM15 GM T; +POTASSIUM CHLO20 ME3 PO; +SINEMET 25-1001 EACH PO; +SINEMET 25-2501 EACH PO; +TORSEMIDE20 MG PO; +TRAD5TAB1 PO; +TRAMADOL HCL50 MG PO; +TYLENOL325 M1 PO; +VITAMIN D32000 UNI1 PO; +ZOFRAN8 M1 PO
[2019-01-05 01:02] VITALS: BP 133/56
[2019-01-05 01:33] LABS: BASO % 0.3 % (0.0-1.0); EOS # 0.4 10*3/uL (0.0-0.4); EOS % 5.6 % (1.0-4.0); HEMATOCRIT 34.7 % (37.0-47.0); HEMOGLOBIN 11.1 g/dl (12.0-16.0); LYMPH # 1.4 10*3/uL (1.3-4.4); LYMPH % 19.5 % (27.0-41.0); MEAN CELL VOLUME 84.6 fl (81.0-99.0); MEAN CORPUSCULAR HGB 27.1 pg (27.0-31.0); MEAN PLATELET VOLUME 9.7 fl (9.6-12.3); MONO # 0.7 10*3/uL (0.1-1.0); MONO % 9.8 % (3.0-9.0); NEUT # 4.5 10*3/uL (2.3-7.9); NEUT % 64.2 % (47.0-73.0); PLATELET COUNT AUTOMATED 207 10*3/uL (130-400); RED CELL DISTRI WIDTH 17.7 % (0-14.5); WHITE BLOOD COUNT 6.9 10*3/uL (4.8-10.8)
[2019-01-05 01:49] LABS: ALBUMIN 2.8 gm/dl (3.1-4.5); ALKALINE PHOSPHATASE 62 U/L (45-117); BUN 23 mg/dl (7-24); CHLORIDE 107 mmol/L (98-107); POTASSIUM 4.2 mmol/L (3.5-5.1); SGOT/AST 7 IU/L (3-35); SGPT/ALT < 6 U/L (12-78); SODIUM 140 mmol/L (136-145); TOTAL PROTEIN 6.2 gm/dL (6.4-8.2); TROPONIN I < 0.015 ng/ml (<0.045)
[2019-02-15] MEDS ORDERED: CETIRIZINE10 MG PO (08:47)
[2019-02-15] MEDS ORDERED: MILK OF MA400 MG/5 M PO (09:00)
[2019-02-15] MEDS ORDERED: CLARITIN10 MG PO (09:00)
[2019-02-17] MEDS ORDERED: ELIQUIS2.5 M1 PO (09:10)
[2019-02-17] MEDS ORDERED: ELIQUIS5 M1 PO (09:10)
== END 2019-01-05 03:19 | disposition home or self-care (01) ==
LOC: ED 00:46
PROVIDERS: Emergency Medicine
DX: S16.1XXA Strain of muscle, fascia and tendon at neck level, initial encounter (principal); S00.83XA Contusion of other part of head, initial encounter; S20.211A Contusion of right front wall of thorax, initial encounter; R07.89 Other chest pain; E11.22 Type 2 diabetes mellitus with diabetic chronic kidney disease; I13.0 Hypertensive heart and chronic kidney disease with heart failure and stage 1 through stage 4 chronic kidney disease, or unspecified chronic kidney disease; N18.3 Chronic kidney disease, stage 3 (moderate); I50.30 Unspecified diastolic (congestive) heart failure; E11.40 Type 2 diabetes mellitus with diabetic neuropathy, unspecified; I25.10 Atherosclerotic heart disease of native coronary artery without angina pectoris; K21.9 Gastro-esophageal reflux disease without esophagitis; E78.5 Hyperlipidemia, unspecified; E03.9 Hypothyroidism, unspecified; Z90.710 Acquired absence of both cervix and uterus; Z88.1 Allergy status to other antibiotic agents; Z88.5 Allergy status to narcotic agent; Z88.2 Allergy status to sulfonamides; Z88.6 Allergy status to analgesic agent; Z79.2 Long term (current) use of antibiotics; Z79.899 Other long term (current) drug therapy; Z79.4 Long term (current) use of insulin; Z79.84 Long term (current) use of oral hypoglycemic drugs; W19.XXXA Unspecified fall, initial encounter; Y93.89 Activity, other specified; Y92.128 Other place in nursing home as the place of occurrence of the external cause; Y99.8 Other external cause status

== ENCOUNTER 2019-01-11 21:45 | Inpatient (IN) | payer MEDICARE, OTHER ==
[~2019-01-11] VITALS: Ht 157.5 cm; Wt 70.8 kg
--- NOTE | ~2019-01-11 | EKG ---
[place], [place] ELECTROCARDIOGRAM REPORT NAME: JAMAL PARKER UNIT #: [id number] ROOM: 409 DOCTOR: EPIPHANY DRAFT REPORT BIRTHDATE: [birth year] [facility] Test Date: 2019-01-12 Test Time: 00:46:12 Pat Name: JAMAL PARKER Department: Room: 409 Gender: F Fountain Helper: SS RESP : 1935 Requested By: ESPERANZA POSEY Order Number: [id number] Reading MD: Justin Jones MD Measurements Intervals [place] Rate: 79 P: 8 MO: 179 QRS: -30 QRSD: 80 T: 57 QT: 532 QTc: 611 Interpretive Statements Sinus rhythm Inferior infarct, old Prolonged QT interval Baseline wander in lead(s) V5 Compared to ECG 01/05/2019 01:39:11 Prolonged QT interval now present Myocardial infarct finding still present Electronically Signed On 01-14-2019 7:56:15 PDT by Justin Jones MD CM:EKGRPT:ELECTROCARDIOGRAM REPORT [id number] ESPERANZA POSEY MD EPIPHANY DRAFT REPORT ESPERANZA POSEY MD
[2019-01-11 21:47] VITALS: BP 118/46
[2019-01-11 22:17] VITALS: BP 120/45
--- NOTE | 2019-01-11 22:45 | NUR ---
PATIENT RESTING IN BED WITH EYES CLOSED. SPO2 90% ON ROOM AIR POST DILAUDID. 2L NC PLACED
[2019-01-11 22:52] VITALS: BP 121/45
--- NOTE | 2019-01-11 23:05 | NUR ---
Nurse to nurse report received from Jayda CALLES.
[2019-01-11 23:36] VITALS: BP 108/41
--- NOTE | 2019-01-11 23:43 | NUR ---
[facility] CALLED FOR AN UPDATE ON PT, ADVISED AWAITING RADIOLOGY RESULTS AND WILL CALL WITH UPDATE WHEN AVAILABLE.
[2019-01-12] VITALS (8 sets, daily range): BP systolic 108–147; BP diastolic 42–77
[2019-01-12 00:34] LABS: BASO % 0.6 % (0.0-1.0); EOS # 0.3 10*3/uL (0.0-0.4); EOS % 4.5 % (1.0-4.0); HEMATOCRIT 35.7 % (37.0-47.0); HEMOGLOBIN 11.2 g/dl (12.0-16.0); LYMPH # 1.7 10*3/uL (1.3-4.4); MEAN CELL VOLUME 86.2 fl (81.0-99.0); MEAN CORPUSCULAR HGB 27.1 pg (27.0-31.0); MEAN CORPUSCULAR HGB CONC 31.4 g/dl (33.0-37.0); MEAN PLATELET VOLUME 9.5 fl (9.6-12.3); MONO # 0.6 10*3/uL (0.1-1.0); MONO % 8.8 % (3.0-9.0); NEUT # 4.3 10*3/uL (2.3-7.9); NEUT % 61.8 % (47.0-73.0); PLATELET COUNT AUTOMATED 293 10*3/uL (130-400); RED BLOOD COUNT 4.14 10*6/uL (4.10-5.10); RED CELL DISTRI WIDTH 17.9 % (0-14.5)
[2019-01-12 00:51] LABS: CREATININE 2.28 mg/dL (0.55-1.02); POTASSIUM 4.5 mmol/L (3.5-5.1); TOTAL PROTEIN 6.2 gm/dL (6.4-8.2); TROPONIN I 0.018 ng/ml (<0.045)
--- NOTE | 2019-01-12 01:00 | NUR ---
Time: 99 A 83 year old FEMALE admitted to 4E under services of LUIGI REYNOLDS DO. Pt. arrived via bed from ER. Chief complaint: CHEST PAIN. ALFRED LAM
[2019-01-12] MEDS ORDERED: RIVASTIGMINE TAR6 M1 PO (01:05)
[2019-01-12] MEDS ORDERED: FUROSEMIDE40 MG PO (01:05)
[2019-01-12] MEDS ORDERED: LIDOCAINE PAIN1 EACH T ×2 (01:07→01:27)
[2019-01-12] MEDS ORDERED: REMERON30 M1 PO (01:08)
[2019-01-12] MEDS ORDERED: MEGACE 40400 MG/10 PO (01:12)
--- NOTE | 2019-01-12 01:33 | NUR ---
MED REC UP TO DATE PER LIST FROM PR
--- NOTE | 2019-01-12 01:45 | NUR ---
PRESENT ON FLOOR NOTIFIED OF MEDICATIONS VERIFIED AND THAT PATIENT HAS BLE REDDNESS/PITTING EDEAM AND WARMTH. STATES OK
--- NOTE | 2019-01-12 01:55 | NUR ---
STATES THAT IV ATB THERPAY IS NOT NEEDED AT THIS TIME AND TO JUST MONITOR LEGS
--- NOTE | 2019-01-12 03:18 | NUR ---
24 HR chart check completed.
--- NOTE | 2019-01-12 09:45 | NUR ---
MEDICATED WITH MORPHINE PER ORDER AND REQUEST FOR CHEST PAIN.
--- NOTE | 2019-01-12 14:03 | NUR ---
MEDICATED WITH PRN PERCOCET PER ORDER FOR STERNUM PAIN.
--- NOTE | 2019-01-12 17:38 | NUR ---
DR. SIMONS AWARE PATIENT WANTS BENADRYL OR SOMETHING FOR ITCHING.
[2019-01-12 17:53] LABS: BILIRUBIN NEGATIVE (NEGATIVE); BLOOD TRACE-INTACT (NEGATIVE); CLARITY CLOUDY (CLEAR); COLOR YELLOW (YELLOW); GLUCOSE NEGATIVE (NEGATIVE); KETONE NEGATIVE (NEGATIVE); LEUKO ESTERASE 3+ (NEGATIVE); NITRITE POSITIVE (NEGATIVE); PH 5.5 (5.0-9.0); SPECIFIC GRAVITY 1.015 (1.005-1.030); UROBILINOGEN 0.2 E.U./dl (0.2-1.0)
--- NOTE | 2019-01-12 17:58 | NUR ---
PATIENT YELLING OUT. MEDICATED WITH BENADRYL AND MORPHINE PER ORDERS AND PATIENT REQUEST.
[2019-01-12 18:00] LABS: BACTERIA 4+; WBC TNTC wbc/hpf (0-5)
--- NOTE | 2019-01-12 20:33 | NUR ---
PT RESTING IN BED, STATES ITCHING HAS REDUCED SOME, BUT STATES SHE IS STILL ITCHING-SHE HAS BEEN FOR YEARS. LUNG SOUNDS CLEAR, ON 2L NC, PT STATES 5/10 STERNAL PAIN, STATES IT IS IMPROVING. DENIES NEEDS AT THIS TIME. CALL LIGHT WITHIN REACH.
[2019-01-13] VITALS: BP 151/66
--- NOTE | 2019-01-13 01:30 | NUR ---
PT COMPLAINING OF GENERALIZED ALL OVER ITCHING, SPOKE WITH DR LAWS. ORDERS RECEIVED FOR IV BENADRYL X1.
--- NOTE | 2019-01-13 01:40 | NUR ---
IV BENADRYL GIVEN FOR COMPLAINTS OF ITCHING. WILL MONITOR.
--- NOTE | 2019-01-13 02:30 | NUR ---
PT CALLED OUT CRYING IN PAIN AND STATES HER ITCHING IS UNBEARABLE. MEDICATED WITH MORPHINE AND APPLIED LOTION TO PT'S BACK FOR COMFORT. WILL MONITOR FOR EFFECTIVENESS.
--- NOTE | 2019-01-13 03:30 | NUR ---
PT RESTING MORE COMFORTABLY, APPEARS TO BE SLEEPING. WILL CONTINUE TO MONITOR.
[2019-01-13 05:52] LABS: CREATININE 1.42 mg/dL (0.55-1.02); POTASSIUM 4.3 mmol/L (3.5-5.1)
[2019-01-13 05:57] LABS: BASO % 0.2 % (0.0-1.0); HEMATOCRIT 31.5 % (37.0-47.0); HEMOGLOBIN 9.9 g/dl (12.0-16.0); LYMPH # 1.6 10*3/uL (1.3-4.4); LYMPH % 24.9 % (27.0-41.0); MEAN CELL VOLUME 85.1 fl (81.0-99.0); MEAN CORPUSCULAR HGB 26.8 pg (27.0-31.0); MEAN CORPUSCULAR HGB CONC 31.4 g/dl (33.0-37.0); MEAN PLATELET VOLUME 9.5 fl (9.6-12.3); MONO # 0.4 10*3/uL (0.1-1.0); MONO % 5.9 % (3.0-9.0); NEUT # 4.3 10*3/uL (2.3-7.9); NEUT % 68.5 % (47.0-73.0); PLATELET COUNT AUTOMATED 276 10*3/uL (130-400); RED CELL DISTRI WIDTH 17.2 % (0-14.5); WHITE BLOOD COUNT 6.3 10*3/uL (4.8-10.8)
[2019-01-13 08:00] VITALS: BP 113/51
--- NOTE | 2019-01-13 08:00 | NUR ---
2 ASSIST UP TO CHAIR.
--- NOTE | 2019-01-13 10:20 | NUR ---
MEDICATED WITH PRN MORPHINE PER ORDER AND REQUEST.
--- NOTE | 2019-01-13 10:30 | NUR ---
PHYSICAL THERAPY PT EVAL COMPLETED TODAY ON LEVEL 4: FULL EVALUATION TO FOLOOW. DAUGHTER PRESENT DURING EVAL. RECOMMEND PT WHILE HERE TO ADDRESS PAIN , DECREASED MOBILITY, DECREASED STRNEGTH AND FUNCTION. PT EVAL IS MODERATE COMPLEXITY BAED ON EVALUATION, CHART REVIEW AND TEST RESULTS: [id number]. D/C RECOMMENDATIONS ARE TO RETURN TO SNF AT [facility] WHERE SHE IS A RESIDENT TO ADDRESS FUNCTIONAL DEFICITS AND REGAIN PLOF. THANK YOU FOR REFERRAL RUPALI DE LA GARZA PT
[2019-01-13 12:00] VITALS: BP 116/45
--- NOTE | 2019-01-13 12:21 | NUR ---
ASSISTED BACK IN BED MEDICATED WITH PERCOCET PER ORDER AND REQUEST.
--- NOTE | 2019-01-13 15:35 | NUR ---
MEDICATED WITH PRN VISTARIL AND FLEXERIL PER ORDERS AND REQUEST.
[2019-01-13 16:00] VITALS: BP 131/51
--- NOTE | 2019-01-13 16:30 | NUR ---
FLEXERIN AND VISTARIL HELPED SOME.
--- NOTE | 2019-01-13 17:38 | NUR ---
MEDICATED WITH PRN MORPHINE PER ORDER AND REQUEST.
[2019-01-13 20:00] VITALS: BP 98/58
[2019-01-14] VITALS: BP 112/53
--- NOTE | 2019-01-14 00:18 | NUR ---
MORPHINE GIVEN PER ORDER AND REQUEST FOR COMPLAINTS OF STERNUM PAIN 07/04. WILL CONTINUE TO MONITOR AND REASSESS.
--- NOTE | 2019-01-14 01:00 | NUR ---
MORPHINE EFFECTIVE FOR PAIN. PT SLEEPING COMFORTABLY WITH CALL LIGHT IN REACH.
--- NOTE | 2019-01-14 01:41 | NUR ---
VISTARIL GIVEN PER ORDER FOR C/O ITCHINESS. WILL CONTINUE TO MONITOR AND REASSESS.
--- NOTE | 2019-01-14 02:30 | NUR ---
VISTARIL APPEARS EFFECTIVE. PT SLEEPING COMFORTABLY WITH CALL LIGHT IN REACH.
--- NOTE | 2019-01-14 03:44 | NUR ---
24 HR chart check completed.
[2019-01-14 06:28] LABS: BASO % 0.1 % (0.0-1.0); HEMOGLOBIN 9.7 g/dl (12.0-16.0); LYMPH # 1.3 10*3/uL (1.3-4.4); LYMPH % 16.9 % (27.0-41.0); MEAN CELL VOLUME 86.6 fl (81.0-99.0); MEAN CORPUSCULAR HGB 27.1 pg (27.0-31.0); MEAN CORPUSCULAR HGB CONC 31.3 g/dl (33.0-37.0); MEAN PLATELET VOLUME 9.5 fl (9.6-12.3); MONO # 0.7 10*3/uL (0.1-1.0); MONO % 9.4 % (3.0-9.0); NEUT # 5.4 10*3/uL (2.3-7.9); NEUT % 73.1 % (47.0-73.0); PLATELET COUNT AUTOMATED 273 10*3/uL (130-400); RED BLOOD COUNT 3.58 10*6/uL (4.10-5.10); RED CELL DISTRI WIDTH 17.3 % (0-14.5); WHITE BLOOD COUNT 7.4 10*3/uL (4.8-10.8)
[2019-01-14 06:53] LABS: CREATININE 1.52 mg/dL (0.55-1.02)
[2019-01-14 08:00] VITALS: BP 126/54
--- NOTE | 2019-01-14 09:09 | NUR ---
PHYSICAL THERAPY informed consent given, pt identified by name and . pt presented supine in bed spO2 97% room air, pt states sternal pain 05/04. Bed mobility: pt able to move feet out to the side of the bed on her own, modAx2 given the rest of the way. STS and stand to sit x2 trials modAx2. pt stood 1min x2 trials, seated rests in between where spO2 read 91% room air,educated on breathing techniques to avoid low spO2 levels. during standing pt presented retrograde LOB, modA to correct at times, v/c given to push weight with B UE on wh walker, shift weight anteriorly, seperate feet for a wider LEONARDO and to lock out knees to assist with stance and reduce retrograde LOB. Sit to supine and bed mobility maxAx2, at this time pt yelled out in pain and asked for a pain pill. STEVAN Cordon notified. Ended treatment pt supine in bed spO2 93% room air, call light and belongings in reach, bed alarm on. 1:1 treatment with DEEP SUBMERGENCE VEHICLE OPERATOR 15min. MANDO CAMACHO DEEP SUBMERGENCE VEHICLE OPERATOR
--- NOTE | 2019-01-14 09:33 | NUR ---
Patient comes from [facility], long term care pharmacist. Ok to return when medically stable for discharge.
--- NOTE | 2019-01-14 11:15 | NUR ---
Occupational Therapy evaluation completed on 4 with full eval to follow. Precautions include fall risk, h[facility] falls,[facility], high complexity level 79707 via chart review, testing and evaluation. Recommend OT per POC and [facility] as P[facility]F. Thank you for this referral. Linda OTR/L
[2019-01-14 12:00] VITALS: BP 133/51
--- NOTE | 2019-01-14 12:26 | NUR ---
Patient updated clinicals and therapy eval faxed to [facility] for restorative care for review. 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
[2019-01-14 16:00] VITALS: BP 117/47
--- NOTE | 2019-01-14 19:46 | NUR ---
MEDICATED WITH PRN PERCOCET FOR C/O MIDSTERNAL PAIN RATED 10/10 ON A 0/10 PAIN SCALE
--- NOTE | 2019-01-14 19:52 | NUR ---
MEDICATED WITH PRN VISTARIL FOR C/O ITCHINESS. WILL MONITOR
[2019-01-14 20:00] VITALS: BP 119/45
--- NOTE | 2019-01-14 22:20 | NUR ---
MEDICATED WITH PRN FLEXERIL FOR C/O BACK SPASMS. WILL MONITOR
[2019-01-15] VITALS: BP 105/35
--- NOTE | 2019-01-15 00:41 | NUR ---
DR LAWS AWARE OF PATIENT C/O ITCHINESS AND PAIN. ALL AVAILABLE MEDICATIONS HAVE BEEN GIVEN. WILL CONTINUE TO MONITOR
--- NOTE | 2019-01-15 02:13 | NUR ---
24 HR chart check completed.
--- NOTE | 2019-01-15 04:41 | NUR ---
MEDICATED WITH PRN PERCOCET FOR C/O PAIN. WILL MONITOR
[2019-01-15 08:00] VITALS: BP 126/58
--- NOTE | 2019-01-15 09:00 | NUR ---
case mangement visits with patient, patient will be going back to [facility] when medically stable, funeral planner and case management will follow
--- NOTE | 2019-01-15 11:12 | NUR ---
OT NOTE Pt was seen this A.M. 1:1 for 23 minute OT session. Upon arrival pt was sitting upright in recliner. Pt identified by name and and had complaints of sternal pain which she did not rate on 0-10 pain scale. Pt presented to therapy with continous 1.5L-O2 via NC which she remained on throughout entire session. Multiple sit to stand transfers completed from chair level with modA x 2. Upon rise pt had multiple LOB backwards due to retrograde posture that required maxA to correct. Attempted static standing and with each stand pt continued to have LOB backwards with poor righting reactions. Challenged pt's static standing tolerance needed for increased I in self care tasks and functional transfers and pt was able to tolerate aprox 3 minutes at a time before sitting due to fatigue. Functional mobility completed into the bathroom while requiring a seated rest break residential due to fatigue. There she transferred on to standard commode with modA due to not flexing at her hips and/or knees. Pt then transferred off standard commode with modA X 2. Functional mobility completed back to the recliner with Yazmin and use of w/w where she was left sitting upright with call light in hand, tray table in place, and body alarm on for safety. Extra time given throughout session due to slow rate of performance. Continue with rec D/C plan to return to halfway LTC. ARCELIA Pagdett/Gil
--- NOTE | 2019-01-15 11:27 | NUR ---
PHYSICAL THERAPY informed consent given, pt identified by name and . pt presented sitting in chair spO2 96% 1.5L. STS and stand to sit multiple times modAx2, v/c proper hand placement to avoid injury. Static standing balance B UE supported by AD with seated rests in between: 3min x1, 1min x1 Yazmin for retrograde LOB, v/c to push weight through wh walker, and to shift weight anteriorly to avoid retrograde LOB. Walked 10ft x1, 20ft x2 CGA/Yazmin d/t retrograde LOB, v/c for a wider LEONARDO and to take larger steps to assist with walk, seated rests in between. Ended treatment pt sitting in chair, call light and belongings in reach, chair alarm on spO2 99% 2L. 1:1 treatment with MANPOWER DEVELOPMENT SPECIALIST MANAGER 20min.
[2019-01-15 12:00] VITALS: BP 122/52
--- NOTE | 2019-01-15 13:19 | NUR ---
PHYSICAL THERAPY informed consent given, pt identified by name and . pt presented sitting in chair spO2 99% 2L. STS and stand to sit x2 trials modAx2, v/c for proper hand placement to avoid injury. Static standing balance total 3min: of which 1min B UE supported by AD Yazmin/CGA, and the other 2 was handheld Yazmin/CGA to encourage righting reactions to improve poprioception, v/c to weight shift anteriorly and to push down unto wh walker to decrease retrograde LOB. Walked 20ft CGA wh walker. TUG test 4min 40 seconds CGA, max v/c for directions when turning, which took the most time. Ended treatment pt sitting in chair 98% 2L call light and belongings in reach, chair alarm on. 1:1 treatment with PROFESSIONAL SPORTS SCOUT 17min. MANDO CAMACHO PROFESSIONAL SPORTS SCOUT
--- NOTE | 2019-01-15 15:43 | NUR ---
OCCUPATIONAL THERAPY CO-SIGN I approve of the Occupational Therapy notes written above. MEGGAN RODRIGUEZ OTR/Gil
[2019-01-15 16:00] VITALS: BP 110/56
[2019-01-15 20:00] VITALS: BP 125/58
--- NOTE | 2019-01-15 20:19 | NUR ---
PATIENT MEDICATED WITH PRN VISTARIL FOR ITCHING. PATIENT VOICES NO OTHER COMPLAINTS AT THIS TIME. REPOSITIONED IN BED PER REQUEST. WILL CHECK EFFECTIVENESS.
--- NOTE | 2019-01-15 21:00 | NUR ---
PATIENT MEDICATED WITH SCHEDULED OXYCOTIN. RATING HER PAIN A 6/10 AT THIS TIME. VOICES NO OTHER COMPLAINTS AT THIS TIME. PATIENT STATES VISTARIL IS HELPING. BED IN LOWEST POSITION, CALL LIGHT WITHIN REACH, BED ALARM ON. WILL CONTINUE TO MONITOR.
[2019-01-16] VITALS: BP 137/74
--- NOTE | 2019-01-16 00:20 | NUR ---
PATIENT SLEEPING. PAIN MEDICATION EFFECTIVE. RESPIRATIONS EASY, NON LABORED. NO SIGNS OF DISTRESS. BED ALARM ON, CALL LIGHT WITHIN REACH. WILL CONTINUE TO MONITOR.
--- NOTE | 2019-01-16 03:14 | NUR ---
PATIENT C/O STERNUM PAIN AND ITCHING. RATES PAIN A /10. MEDICATED WITH PERCOCET AND VISTARIL. WILL CHECK EFFECTIVENESS. CALL LIGHT WITHIN REACH, BED ALARM ON.
--- NOTE | 2019-01-16 03:34 | NUR ---
24 HR chart check completed.
[2019-01-16 06:04] LABS: BASO % 0.1 % (0.0-1.0); EOS % 0.1 % (1.0-4.0); HEMATOCRIT 32.5 % (37.0-47.0); HEMOGLOBIN 10.1 g/dl (12.0-16.0); LYMPH # 1.8 10*3/uL (1.3-4.4); LYMPH % 26.5 % (27.0-41.0); MEAN CELL VOLUME 86.4 fl (81.0-99.0); MEAN CORPUSCULAR HGB 26.9 pg (27.0-31.0); MEAN CORPUSCULAR HGB CONC 31.1 g/dl (33.0-37.0); MEAN PLATELET VOLUME 9.4 fl (9.6-12.3); MONO # 0.7 10*3/uL (0.1-1.0); NEUT # 4.3 10*3/uL (2.3-7.9); NEUT % 62.6 % (47.0-73.0); PLATELET COUNT AUTOMATED 299 10*3/uL (130-400); RED BLOOD COUNT 3.76 10*6/uL (4.10-5.10); RED CELL DISTRI WIDTH 17.5 % (0-14.5); WHITE BLOOD COUNT 6.9 10*3/uL (4.8-10.8)
[2019-01-16 06:27] LABS: POTASSIUM 4.8 mmol/L (3.5-5.1)
[2019-01-16 06:29] LABS: CREATININE 1.49 mg/dL (0.55-1.02)
[2019-01-16 08:00] VITALS: BP 140/60
--- NOTE | 2019-01-16 09:14 | NUR ---
Patient updated clinicals faxed to [facility] for review. Patient is [facility] care and can return when medically stable.
--- NOTE | 2019-01-16 09:55 | NUR ---
OT NOTE Pt was seen this A.M. 1:1 for 25 minute OT session. Upon arrival pt was sitting upright in recliner. Pt identified by name and and had complaints of mild sternal pain with deep breaths. Pt presented to therapy with continous 2L-O2 via NC which she remained on throughout entire session. Multiple sit to stand transfers completed from chair level with modA X 2 and use of w/w for UE support. Challenged pt's static standing tolerance needed for increased I in self care tasks and functional transfers, pt was able to tolerate aprox 3 minutes at a time before sitting due to fatigue. Throughout static stands pt had multiple LOB backwards that required maxA to correct. Pt was unable to self correct. Functional mobility completed into the bathroom with Yazmin and use of w/w, multiple standing rest breaks taken throughout. Throughout mobility pt required verbal prompts for continuation, bigger steps, and min safety with the walker. Pt transferred on/off standard commode with modA. Clothing management completed with maxA. Functional mobility completed back to the recliner with Yazmin and use of w/w. Pt was left sitting upright in recliner with call light in hand, tray table in place, and body alarm on for safety. Continue with rec D/C plan to return to custodial LTC. ARCELIA Padgett/Gil
--- NOTE | 2019-01-16 10:21 | NUR ---
PHYSICAL THERAPY informed consent given, pt identified by name and . pt presented sitting in chair with oxygen off, spO2 92% room air, oxygen was put on during treatment. STS and stand to sit modAx2 v/c safe hand placement to avoid injury. Static standing balance 2min B UE supported by wh walker, Yazmin d/t retrograde fall. v/c to shift weight anteriorly, and push down on AD to avoid fall. Walked 24ft x2 Yazmin d/t retrograde LOB, v/c to take larger steps to avoid fatigue , seated rests in between. Ended treatment pt sitting in chair, chair alarm on, call light and belongings in reach. 1:1 treatment with GIFT SHOP CLERK 25min. MANDO CAMACHO GIFT SHOP CLERK
[2019-01-16 12:00] VITALS: BP 105/67
--- NOTE | 2019-01-16 13:32 | NUR ---
PHYSICAL THERAPY informed consent given, pt identified by name and . pt presented sitting in chair with oxygen off 92% room air, oxygen was put on throughout treatment. STS and stand to sit x2 trials modA v/c safe hand placement to avoid injury. static standing balance 2 trials: first trial 4min with B UE supported by AD, first 2min multiple retrograde LOB Yazmin last two minutes pt was able to stand with AD CGA without LOB. Second trial pt stood 1min with B UE supported by AD, last 1min hand held Yazmin for retrograde LOB. v/c given to shift weight anteriorly and push down on AD to avoid retrograde fall. After this pt turned to sit EOB. sit to supine modAx2. Ended treatment pt supine in bed spO2 94% 2L call light and belongings in reach, bed alarm on. 1:1 treatment with EMAIL MARKETING SPECIALIST 15min. MANDO CAMACHO EMAIL MARKETING SPECIALIST
[2019-01-16 16:00] VITALS: BP 113/53
[2019-01-16 20:00] VITALS: BP 98/50
--- NOTE | 2019-01-16 21:08 | NUR ---
PATIENT MEDICATED WITH SCHEDULED OXYCONTIN, RATING MIDSTERNUM PAIN 10/10. PATIENT ALSO MEDICATED WITH PRN VISTARIL FOR COMPLAINTS OF ITCHINESS. WILL CHECK EFFECTIVENESS.
--- NOTE | 2019-01-16 22:15 | NUR ---
PATIENT RESTING WITH EYES CLOSED. OXYCONTIN AND VISTARIL EFFECTIVE. RESPIRATIONS EASY NON LABORED. NO SIGNS OF DISTRESS. BED IN LOWEST POSITION, CALL LIGHT WITHIN REACH. BED ALARM ON WILL CONTINUE TO MONITOR.
[2019-01-17] VITALS: BP 153/70
--- NOTE | 2019-01-17 00:11 | NUR ---
PATIENT AWAKE. COMPLAINING OF MIDSTERNAL CHEST PAIN. MEDICATED WITH PERCOCET. PATIENT ALSO REQUESTING SOMETHING TO HELP SLEEP. MEDICATED WITH RESTORIL. WILL CHECK EFFECTIVENESS.
--- NOTE | 2019-01-17 03:50 | NUR ---
PATIENT SLEEPING. NO SIGNS OF DISTRESS. RESPIRATIONS EASY, NON LABORED. BED IN LOWEST POSITION, CALL LIGHT WITHIN REACH. BED ALARM ON WILL CHECK EFFECTIVENESS.
--- NOTE | 2019-01-17 05:09 | NUR ---
PATIENT AWAKE COMPLAINING OF STERNUM PAIN AND ITCHINESS. MEDICATED WITH VISTARIL AND FLEXARIL. WILL CHECK EFFECTIVENESS.
[2019-01-17 08:00] VITALS: BP 154/57
--- NOTE | 2019-01-17 08:45 | NUR ---
OT NOTE Pt was seen this A.M. 1:1 for 20 minute OT session. Upon arrival pt was supine in bed. Pt identified by name and and had no complaints at this time. Pt transferred supine to sit EOB with modA for assist with UB. Sit to stand completed from bed level with Yazmin X 2 and retrograde posture that required maxA to correct. Functional mobility completed into the bathroom with Yazmin and use of w/w for UE support. There she transferred on/off standard commode with modA. Clothing management completed with maxA. Functional mobility completed back to the recliner where she was left sitting upright with call light in hand, tray table in place, and body alarm on for safety. Throughout entire session pt required constant verbal prompts for walker and foot advancment and taking bigger steps. Extra time given throughout due to slow rate of performance. Continue with rec D/C plan to return to intermediate LTC. ARCELIA Padgett/Gil
--- NOTE | 2019-01-17 09:00 | NUR ---
SITTING UP IN CHAIR EATING BREAKFAST. TOLERATED ROUTINE MED WITH NO PROBLEM PT ALERT TO NAME AND YEAR. PT STATES ITS NIGHTIME, REORIENTED PT. BODY ALARM ON PT GOWN. CALL LIGHT IN REACH. SEE SHIFT ASSESSMENT.
--- NOTE | 2019-01-17 09:00 | NUR ---
case mangement visits with patient, patient will be going back to [facility] when medically stable, media planner following
--- NOTE | 2019-01-17 09:14 | NUR ---
PHYSICAL THERAPY informed consent given, pt identified by name and . pt presented supine in bed and upset that her breakfast had not arrived yet. supine to sit modAx2. STS and stand to sit modA v/c safe hand placement to avoid injury. walked 10ftx1, 15ft x1 Yazmin wh walker. during walks pt freezes requiring v/c to initiate movement. Ended treatment pt sitting chair call light and belongings in reach, chair alarm on. 1:1 treatment with JUNIOR STAFF ACCOUNTANT 16min MANDO CAMACHO PTA
--- NOTE | 2019-01-17 10:55 | NUR ---
MEDICATED WITH DUCOLAX PER DR. BERNABE. SEE EMAR.
[2019-01-17 12:00] VITALS: BP 148/62
--- NOTE | 2019-01-17 12:17 | NUR ---
PT MEDICATED WITH VISTARIL PO FOR ANXIETY. PT ANXIOUS YELLING OUT. ASSISTED TO BEDSIDE COMMODE AND RESTING BACK IN RECLINER. BODY ALARM ON GOWN. CALL LIGHT IN REACH.
--- NOTE | 2019-01-17 14:39 | NUR ---
SPOKE WITH DR. GARCIA REGARDING PT FMAILY CONCERNED ABOUT PT INCREASE IN CONFUSION AND ANXIETY/BEING SCARED. THEY ARE AFRAID IT IS FROM THE MEDICATION. FAMILY MADE AWARE THAT PT NEEDS THE PAIN MEDICATION TO HELP WITH PAIN AND SLEEP. THEY WILL DECREASE NEEDED.
--- NOTE | 2019-01-17 14:52 | NUR ---
SPOKE WITH DAUGHTER REGARDING PT PAIN MEDICATION.
--- NOTE | 2019-01-17 15:20 | NUR ---
PERCOCET GIVEN ORDERED FOR COMPLAINTS OF UNBEARABLE PAIN IN CHEST. WILL CONTINUE TO MONITOR AND REASSESS. CALL LIGHT IN REACH.
--- NOTE | 2019-01-17 15:59 | NUR ---
OCCUPATIONAL THERAPY CO-SIGN I approve of the Occupational Therapy notes written above. MEGGAN RODRIGUEZ OTR/Gil
[2019-01-17 16:00] VITALS: BP 104/55
--- NOTE | 2019-01-17 17:00 | NUR ---
PERCOCET APPEARS EFFECTIVE FOR PAIN. PT RESTING COMFORTABLY WITH EYES CLOSED. CALL LIGHT IN REACH.
[2019-01-17 21:03] VITALS: BP 115/57
--- NOTE | 2019-01-17 21:22 | NUR ---
DR. LAWS NOTIFIED OF CRITICAL HIGH BLOOD SUGAR OF 346. TEST REPEATED WITH RESULT OF 356. ORDERED TO GIVE THE 12 UNITS PER SLIDING SCALE ORDER.
[2019-01-18] VITALS: BP 138/62
--- NOTE | 2019-01-18 05:20 | NUR ---
FLEXERIL GIVEN FOR STERNAL PAIN
--- NOTE | 2019-01-18 06:06 | NUR ---
HAYDE CHAMPION GIVEN FOR PT COMPLAINING OF PAIN. STATES THAT THIS HOTEL IS THE WORST AND SHE WOULD NEVER GIVE IT 5 STARS. SHE STATES THE SERVICE IS TERRIBLE AND THEY WON'T EVER UNLOCK THE DOORS. WON'T RATE PAIN. CALL LIGHT WITHIN REACH, WILL MONITOR
[2019-01-18 08:44] VITALS: BP 140/52
--- NOTE | 2019-01-18 09:00 | NUR ---
HELD SCHEDULED OXYCONTIN AT THIS TIME DUE TO PT BEING LETHARGIC AND DENYING PAIN. WILL CONTINUE TO MONITOR.
[2019-01-18] MEDS ORDERED: PERCOCET 7.5 MG-325 PO (09:58)
[2019-01-18] MEDS ORDERED: OXYCONTIN10 M1 PO (09:58)
--- NOTE | 2019-01-18 11:00 | NUR ---
REPORT CALLED TO STEVAN GREGG AT [facility].
--- NOTE | 2019-01-18 11:45 | NUR ---
[facility] ARRIVES TO TRANSPORT PT BACK TO [facility].
--- NOTE | 2019-01-18 11:55 | NUR ---
Discharge instructions reviewed with patient/family. Patient receptive and verbalizes understanding. Follow-up care arranged. Written instructions given to patient/family. COURTNEY SANDOVAL
--- NOTE | 2019-01-18 14:41 | NUR ---
PHYSICAL THERAPY CO-SIGN I approve of the Phyical Therapy notes written above. REG REES PT
[2019-02-15] MEDS ORDERED: CETIRIZINE10 MG PO (08:47)
[2019-02-15] MEDS ORDERED: MILK OF MA400 MG/5 M PO (09:00)
[2019-02-15] MEDS ORDERED: CLARITIN10 MG PO (09:00)
[2019-02-17] MEDS ORDERED: ELIQUIS2.5 M1 PO (09:10)
[2019-02-17] MEDS ORDERED: ELIQUIS5 M1 PO (09:10)
== END 2019-01-18 12:00 | disposition other institution (70) | DRG 564 ==
LOC: ED 21:45 → 4E 01-12 00:20 → EDHOLD 01-12 00:20 → 4E 01-12 00:27
PROVIDERS: Emergency Medicine Emergency Medical Services; Family Medicine; Student in an Organized Health Care Education/Training Program; ADMIT Internal Medicine
DX: S22.20XA Unspecified fracture of sternum, initial encounter for closed fracture (principal); E43 Unspecified severe protein-calorie malnutrition; N39.0 Urinary tract infection, site not specified; F02.81 Dementia in other diseases classified elsewhere, unspecified severity, with behavioral disturbance; I13.0 Hypertensive heart and chronic kidney disease with heart failure and stage 1 through stage 4 chronic kidney disease, or unspecified chronic kidney disease; I50.32 Chronic diastolic (congestive) heart failure; I25.10 Atherosclerotic heart disease of native coronary artery without angina pectoris; E03.9 Hypothyroidism, unspecified; K21.9 Gastro-esophageal reflux disease without esophagitis; E78.5 Hyperlipidemia, unspecified; K58.9 Irritable bowel syndrome, unspecified; D50.9 Iron deficiency anemia, unspecified; G47.00 Insomnia, unspecified; G20 Parkinson's disease; R29.6 Repeated falls; F41.9 Anxiety disorder, unspecified; Z66 Do not resuscitate; Z51.5 Encounter for palliative care; E11.40 Type 2 diabetes mellitus with diabetic neuropathy, unspecified; N18.3 Chronic kidney disease, stage 3 (moderate); E11.22 Type 2 diabetes mellitus with diabetic chronic kidney disease; W05.0XXA Fall from non-moving wheelchair, initial encounter; Y93.89 Activity, other specified; Y92.128 Other place in nursing home as the place of occurrence of the external cause; Y99.8 Other external cause status; Z79.4 Long term (current) use of insulin; Z88.1 Allergy status to other antibiotic agents; Z88.5 Allergy status to narcotic agent; Z88.2 Allergy status to sulfonamides; Z88.6 Allergy status to analgesic agent; Z85.72 Personal history of non-Hodgkin lymphomas; Z87.440 Personal history of urinary (tract) infections; Z95.5 Presence of coronary angioplasty implant and graft; Z98.42 Cataract extraction status, left eye; Z98.41 Cataract extraction status, right eye; Z90.710 Acquired absence of both cervix and uterus; Z82.61 Family history of arthritis; Z82.49 Family history of ischemic heart disease and other diseases of the circulatory system; Z80.1 Family history of malignant neoplasm of trachea, bronchus and lung; Z81.2 Family history of tobacco abuse and dependence; Z79.01 Long term (current) use of anticoagulants; Z79.891 Long term (current) use of opiate analgesic; Z68.28 Body mass index [BMI] 28.0-28.9, adult

== ENCOUNTER 2019-08-28 12:57 | Inpatient (IN) | payer MEDICARE, OTHER ==
[~2019-08-28] VITALS: Ht 162.6 cm; Wt 76.2 kg
[~2019-08-28 12:57] MED LIST changes: +CETIRIZINE10 MG PO; +CLARITIN10 MG PO; +ELIQUIS2.5 M1 PO; +ELIQUIS5 M1 PO; +FUROSEMIDE40 MG PO; +LIDOCAINE PAIN1 EACH T; +MEGACE 40400 MG/10 PO; +MILK OF MA400 MG/5 M PO; +OXYCONTIN10 M1 PO; +PERCOCET 7.5 MG-325 PO; +REMERON30 M1 PO; +RIVASTIGMINE TAR6 M1 PO
[2019-08-28 12:58] VITALS: BP 153/76
[2019-08-28 13:40] LABS: BASO % 0.7 % (0.0-1.0); EOS # 0.2 10*3/uL (0.0-0.4); EOS % 4.3 % (1.0-4.0); LYMPH # 1.1 10*3/uL (1.3-4.4); LYMPH % 25.2 % (27.0-41.0); MEAN CORPUSCULAR HGB 25.4 pg (27.0-31.0); MEAN CORPUSCULAR HGB CONC 30.3 g/dl (33.0-37.0); MEAN PLATELET VOLUME 9.4 fl (9.6-12.3); MONO # 0.4 10*3/uL (0.1-1.0); MONO % 9.8 % (3.0-9.0); NEUT # 2.6 10*3/uL (2.3-7.9); NEUT % 59.8 % (47.0-73.0); PLATELET COUNT AUTOMATED 216 10*3/uL (130-400); RED BLOOD COUNT 3.93 10*6/uL (4.10-5.10); RED CELL DISTRI WIDTH 15.4 % (0-14.5); WHITE BLOOD COUNT 4.4 10*3/uL (4.8-10.8)
[2019-08-28 13:49] LABS: BILIRUBIN NEGATIVE (NEGATIVE); BLOOD NEGATIVE (NEGATIVE); CLARITY CLOUDY (CLEAR); COLOR YELLOW (YELLOW); GLUCOSE NEGATIVE (NEGATIVE); KETONE NEGATIVE (NEGATIVE); LEUKO ESTERASE 1+ (NEGATIVE); NITRITE POSITIVE (NEGATIVE); SPECIFIC GRAVITY 1.015 (1.005-1.030); UROBILINOGEN 0.2 E.U./dl (0.2-1.0)
[2019-08-28 13:52] LABS: ACT PARTIAL THROMBO TIME 26.3 SECONDS (20.0-32.1)
[2019-08-28 13:56] LABS: ALBUMIN 3.1 gm/dl (3.1-4.5); ALKALINE PHOSPHATASE 81 U/L (45-117); BUN 21 mg/dl (7-24); CHLORIDE 113 mmol/L (98-107); CREATININE 1.73 mg/dL (0.55-1.02); LIPASE 72 U/L (73-393); PHOSPHOROUS 4.7 mg/dL (2.5-4.9); POTASSIUM 4.5 mmol/L (3.5-5.1); SGOT/AST 12 IU/L (3-35); SGPT/ALT 7 U/L (12-78); SODIUM 143 mmol/L (136-145); TOTAL PROTEIN 6.6 gm/dL (6.4-8.2); TROPONIN I < 0.015 ng/ml (<0.045)
[2019-08-28 14:08] LABS: BACTERIA 4+
[2019-08-28 15:39] VITALS: BP 150/62
[2019-08-28 16:00] VITALS: BP 150/62
--- NOTE | 2019-08-28 16:00 | NUR ---
Time: 1600 A 83 year old FEMALE admitted to 4E under services of LUCIA BANEGAS DO, Pt. arrived via bed from ER. Chief complaint: CHF, UTI. PATIENT ORIENTED TO THE FLOOR 4E. FORMS REVIEWED AND COMPLETED, CALL LIGHT REVIEWED AND DEMONSTRATED. MED REC UPDATED PER INTERMEDIATE PACKET. KEITH BROOKS
[2019-08-28 16:30] VITALS: BP 156/52
[2019-08-28] MEDS ORDERED: MELATONIN5 M1 SL (16:51)
[2019-08-28] MEDS ORDERED: GERI-KOT8.6 MG PO (16:51)
[2019-08-28] MEDS ORDERED: ULTRAM50 MG PO (16:53)
[2019-08-28] MEDS ORDERED: LIDOCAINE PAIN1 EACH TD (16:54)
[2019-08-28] MEDS ORDERED: ALBUTEROL2.5 MG/0.5 INH (16:55)
[2019-08-28] MEDS ORDERED: ARTIFICIAL TEA1 EACH OP (16:56)
[2019-08-28] MEDS ORDERED: LANTUS SOL100 UNIT/1 SQ (16:57)
[2019-08-28] MEDS ORDERED: DULOXETINE HCL60 MG PO (16:58)
[2019-08-28] MEDS ORDERED: MIRTAZAPINE45 MG PO (16:59)
[2019-08-28] MEDS ORDERED: NEURONTIN100 MG PO (17:00)
[2019-08-28] MEDS ORDERED: SANADERMRX SKI1 EACH T (17:02)
[2019-08-28] MEDS ORDERED: ATARAX,VISTARIL10 MG PO (17:03)
[2019-08-28] MEDS ORDERED: DULCOLAX STOOL100 M1 PO (17:04)
[2019-08-28] MEDS ORDERED: ELIQUIS2.5 M1 PO (17:05)
[2019-08-28] MEDS ORDERED: PROTONIX40 MG PO (17:05)
[2019-08-28] MEDS ORDERED: HUMALOG100 UNIT/2 SQ (17:06)
[2019-08-28] MEDS ORDERED: MIRALAX17 GM PO (17:07)
[2019-08-28] MEDS ORDERED: TRAD5TAB1 PO (17:08)
[2019-08-28] MEDS ORDERED: LEVOTHYROXINE75 MCG PO (17:08)
[2019-08-28] MEDS ORDERED: RIVASTIGMINE TAR6 M1 PO (17:09)
[2019-08-28] MEDS ORDERED: VITAMIN D31000 UNI1 PO (17:12)
[2019-08-28] MEDS ORDERED: TYLENOL325 M1 PO (17:13)
[2019-08-28] MEDS ORDERED: CARBIDOPA-LEVO1 EAC1 PO (17:13)
[2019-08-28] MEDS ORDERED: NYSTATIN CREAM15 GM T (17:14)
--- NOTE | 2019-08-28 17:26 | NUR ---
NOTIFIED OF CRITAL LOW BS OF 27, BLOOD GLUCOSE REPEATED PER POLICY, ORANGE JUICE GIVEN PATIENT IS WAKE ALERT AND ORIENTED, DEXTROSE GIVEN PER ORDER.
--- NOTE | 2019-08-28 17:46 | NUR ---
ID ANSWERING SERVICE NOTIFIED OF CONSULT
--- NOTE | 2019-08-28 18:34 | NUR ---
BS 108
--- NOTE | 2019-08-28 19:35 | NUR ---
PATIENT C/O ITCHING. SAYS THIS IS NOTHING NEW FOR HER BUT SHE TAKES MEDICATION AT THE ALF FOR IT. MEDCATIONS AND CREAMS HAVE NOT BEEN REORDERED. DR JOHNSON CALLED, NEW ORDERS RECEIVED. SEE EMAR.
[2019-08-28 20:00] VITALS: BP 156/52
--- NOTE | 2019-08-28 20:02 | NUR ---
VISTARIL ADMIISTERED FOR C/O ITCHING. WILL MONITOR FOR EFFECTIVENESS.
--- NOTE | 2019-08-28 21:02 | NUR ---
PATIENT STATES THAT VISTARIL WAS A LITTLE EFFECTIVE FOR ITCHING. WILL MONITOR.
--- NOTE | 2019-08-28 21:18 | NUR ---
PATIENT REQUESTING MEDICATION FOR SLEEP. RESTORIL ADMINISTERED PRESCRIBED. WILL MONITOR FOR EFFECTIVENESS.
--- NOTE | 2019-08-28 22:18 | NUR ---
PATIENT STATES THAT RESTORIL WAS NOT EFFECTIVE YET. WILL MONITOR.
--- NOTE | 2019-08-28 22:30 | NUR ---
PATIENT C/O INCREASED SHORTNESS OF BREATH. PATIENT L/S TIGHT WITH EXP WHEEZE. DR JOHNSON CALLED- NEW ORDERS RECEIVED. RESPIRATORY CALLED FOR PRN BREATHING TREATMENT.
[2019-08-29] VITALS: BP 136/44
--- NOTE | 2019-08-29 00:06 | NUR ---
PATIENT REQUESTING PAIN MEDICATION FOR ACHING LEGS AND "RESTLESS SKIN". NORCO ADMINISTERED PRESCRIBED. WILL MONITOR FOR EFFECTIVENESS.
--- NOTE | 2019-08-29 00:10 | NUR ---
PATIENT REQUESTING TO HAVE BLOOD SUGAR CHECKED. BS 216 AT THIS TIME. WILL MONITOR.
--- NOTE | 2019-08-29 01:06 | NUR ---
PATIENT RESTING WITH EYES CLOSED. RESPIRATIONS EASY AND UNLABORED. CALL LIGHT WITHIN REACH. WILL MONITOR.
--- NOTE | 2019-08-29 02:00 | NUR ---
PATIENT RESTING WITH EYES CLOSED. RESPIRATIONS EASY AND UNLABORED. CALL LIGHT WITHIN REACH. WILL MONITOR.
--- NOTE | 2019-08-29 04:08 | NUR ---
24 HR chart check completed.
--- NOTE | 2019-08-29 05:14 | NUR ---
PATIENT REQUETING MEDICATION FOR ITCHING. VISTARIL ADMINISTERED PRESCRIBED. WILL MONITOR FOR EFFECTIVENESS.
--- NOTE | 2019-08-29 05:47 | NUR ---
JAMAL PARKER [id number] Please refer to the physician's history and physical for past medical history, comorbid conditions, and allergies. Diagnosis: UTI CHF CELLULITIS DYSPNEA Filiberto Score: 13,MODERATE RISK WOUND DESCRIPTIONS: Wound Number: 1 Location of the wound: right lower extremity Thickness: Partial Size: 0.3cm x 0.2cm x <0.1cm Tunneling: none Undermining: none Sinus Tract: none Presence of Exudate: none Amount: None Color: Red Odor: None Periwound Skin Appearance: edeme, erythema Wound edges: approximated Pain (associated with wound): tender to touch How does patient state this happened? pt states the redness started about a couple weeks ago she is unsure of when this area opened up Surface the patient is resting on: Isoflex SKIN PREVENTION RECOMMENDATION: 1. Pressure redistribution support surface as appropriate 2. Elevate heels 3. Remove boots/TEDS every shift and reapply 4. Head of bed 30 degrees as tolerated 5. Assess nutrition and hydration 6. Manage moisture 7. Avoid the use of containment devices while in bed 8. Use absorptive products on surfaces limit layers of linens on bed 9. Turn and reposition every 1-2 hours in bed and every 1 hour in chair as tolerated 10. Weight shifts every 15 minutes while up in chair 11. Offloading with pillows or device to keep heels elevated off bed 12. Monitor skin at least every shift 13. Inspect under medical devices twice a day WOUND TREATMENT RECOMMENDATIONS: Partial thickness guidelines: Cleanse right lower extremity with nss apply sureprep around the wound therahoney to wound bed and cover with bandaid daily and prn for soiling. Patient states she doesn't want to follow up upon discharge for this areas she states the snf will take care of it
--- NOTE | 2019-08-29 06:14 | NUR ---
PATIENT RESTING WITH EYES CLOSED AT THIS TIME. WILL MONITOR.
[2019-08-29 06:44] LABS: BASO % 0.2 % (0.0-1.0); EOS # 0.2 10*3/uL (0.0-0.4); EOS % 3.4 % (1.0-4.0); HEMATOCRIT 29.7 % (37.0-47.0); HEMOGLOBIN 8.9 g/dl (12.0-16.0); LYMPH # 0.6 10*3/uL (1.3-4.4); LYMPH % 9.9 % (27.0-41.0); MEAN CELL VOLUME 81.1 fl (81.0-99.0); MEAN CORPUSCULAR HGB 24.3 pg (27.0-31.0); MEAN PLATELET VOLUME 9.9 fl (9.6-12.3); MONO # 0.4 10*3/uL (0.1-1.0); MONO % 7.2 % (3.0-9.0); NEUT # 4.4 10*3/uL (2.3-7.9); NEUT % 79.1 % (47.0-73.0); PLATELET COUNT AUTOMATED 218 10*3/uL (130-400); RED BLOOD COUNT 3.66 10*6/uL (4.10-5.10); RED CELL DISTRI WIDTH 15.3 % (0-14.5); WHITE BLOOD COUNT 5.6 10*3/uL (4.8-10.8)
[2019-08-29 06:56] LABS: ALBUMIN 2.9 gm/dl (3.1-4.5); CREATININE 2.01 mg/dL (0.55-1.02); POTASSIUM 4.3 mmol/L (3.5-5.1); TOTAL PROTEIN 6.3 gm/dL (6.4-8.2)
[2019-08-29 07:01] LABS: THYROID STIM HORMONE (HS) 3.36 uIU/ml (0.358-4.75)
--- NOTE | 2019-08-29 07:43 | NUR ---
PHYSICAL THERAPY Screen received as well as orders for Physical Therapy will follow, thank you Tamiko Lozano PT
--- NOTE | 2019-08-29 09:00 | NUR ---
case management visits with patient, she is a half-way resident of [facility] and will return when medically stable, she has a Dr Vega consult for cellulitie and is currently receiving iv zosyn and vancomycin, case management will follow
--- NOTE | 2019-08-29 10:10 | NUR ---
PHYSICAL THERAPY Attempted to see pt for evaluation have and ECHO done in her room presently will follow. Tamiko Lozano PT
--- NOTE | 2019-08-29 11:11 | NUR ---
Patient comes from [facility] director long term care care, ok to return when medically stable for discharge.
[2019-08-29 12:00] VITALS: BP 120/35
--- NOTE | 2019-08-29 12:46 | NUR ---
Updated clinicals faxed to [facility] for review. patient is nursing home care and ok to return when medically stable for discharge.
--- NOTE | 2019-08-29 14:20 | NUR ---
Occupational Therapy evaluation completed on 4 with full eval to follow. Precautions include fall risk; bed alarm,BLE cellulitis,harris, o2 use, moderate complexity level 98867. Recommend OT per pOC and return to LTC upon d/c. Thank you. Alana Presley OTR/L
--- NOTE | 2019-08-29 15:13 | NUR ---
PHYSICAL THERAPY Eval complete moderate level of complexitt [id number] recommend SNF at discharge PT to work on transfers, amb and strengthening thank you Tamiko Lozano PT
[2019-08-29 16:00] VITALS: BP 117/45
--- NOTE | 2019-08-29 17:00 | NUR ---
Nursing screen and Occupational Therapy referral received. Thank you. Alana Presley OTR/l
[2019-08-29 20:00] VITALS: BP 117/50
--- NOTE | 2019-08-29 22:04 | NUR ---
PT STATES THAT SHE IS HAVING BACK PAIN AND REQUESTS SOMETHING FOR IT. PT STATES THAT PAIN IS A 6/10. NORCO IS GIVEN AT THIS TIME, WITH ALL OTHER SCHEDULED HS MEDICATIONS. WILL CONTINUE TO MONITOR, CALL LIGHT IN REACH. SAFETY MEASURES IN PLACE.
--- NOTE | 2019-08-29 23:04 | NUR ---
SELIN EFFECTIVE PER PT.
--- NOTE | 2019-08-29 23:25 | NUR ---
PT STATES THAT HER SCHEDULED REMERON IS NOT EFFECTIVE WITH HELPING HER SLEEP AT THIS TIME AND REQUESTS SOMETHING ELSE. RESTORIL GIVEN PER PRN ORDERS ON EMAR. WILL MONITOR FOR EFFECTIVENESS. PT NOW UP TO BATHROOM WITH ASSISTANCE OF PATIENT ATTENDANT. WILL MONITOR FOR EFFECTIVENESS OF MEDICATION. CALL LIGHT IN REACH.
[2019-08-30] VITALS: BP 124/52
--- NOTE | 2019-08-30 | NUR ---
PT RESTING IN BED. NO S/S OF DISTRESS NOTED. RESPIRATIONS EASY AND UNLABORED ON 2L NC. ALL NEEDS MET, ALL SAFETY MEASURES IN PLACE. CALL LIGHT IN REACH.
--- NOTE | 2019-08-30 00:25 | NUR ---
RESTORIL IS EFFECTIVE AT THIS TIME.
--- NOTE | 2019-08-30 03:18 | NUR ---
Upon discharge recommend patient to follow up for wound care in outpatient setting continue current wound care orders at discharging facility.
--- NOTE | 2019-08-30 06:11 | NUR ---
JAMAL PARKER [id number] Please refer to the physician's history and physical for past medical history, comorbid conditions, and allergies. Diagnosis: UTI CHF CELLULITIS DYSPNEA Filiberto Score: 13,MODERATE RISK WOUND DESCRIPTIONS: ( new skin impairment ) Wound Number: 2 Location of the wound: right breast Type of wound: fungal Thickness: Partial Size: 0.2cm x 2.5cm x 0.1cm Tunneling: none Undermining: none Sinus Tract: none Presence of Exudate: Serous Amount: Light Color: Red Odor: None Periwound Skin Appearance: Normal Wound edges: approximated Pain (associated with wound): tender to touch How does patient state this happened? pt stated just started hurting Surface the patient is resting on: Isoflex SKIN PREVENTION RECOMMENDATION: 1. Pressure redistribution support surface as appropriate 2. Elevate heels 3. Remove boots/TEDS every shift and reapply 4. Head of bed 30 degrees as tolerated 5. Assess nutrition and hydration 6. Manage moisture 7. Avoid the use of containment devices while in bed 8. Use absorptive products on surfaces limit layers of linens on bed 9. Turn and reposition every 1-2 hours in bed and every 1 hour in chair as tolerated 10. Weight shifts every 15 minutes while up in chair 11. Offloading with pillows or device to keep heels elevated off bed 12. Monitor skin at least every shift 13. Inspect under medical devices twice a day WOUND TREATMENT RECOMMENDATIONS: Cleanse right breast with soap and water pat area dry and apply nystatin powder every 8 hours
[2019-08-30 08:00] VITALS: BP 116/64
--- NOTE | 2019-08-30 08:25 | NUR ---
PT RESTING IN BED. MORNINIG ASSESSMENT COMPLETE. NO VOICED C/O AT THIS TIME. BRANDYN MURPHY SPCC
--- NOTE | 2019-08-30 09:30 | NUR ---
OT NOTE PATIENT IN BED UPON ARRIVAL. PATIENT IDENTIFIED BY NAME AND DATE OF . PATIENT SEEN 1:1 OT 12 MINUTES THIS DATE. PATIENT VERBALIZED NEED REPOSITIONING FOR INCREASE EASE CONSUMING BREAKFAST. PATIENT COMPLETED SUPINE TO SIT EOB MOD A WITH MOD VERBAL CUES TECHNIQUE AND USE BED RAIL. COMPLETED SIT TO STAND FROM BED MIN A. COMPLETED SIDE STEPPING USE FWW SUPPORT TOWARDS HEAD OF BED CGA. COMPLETED SIT TO SUPINE BED MOD A. PATIENT DEMONSTRATED/REPORTED INCREASE COMFORT AND INCREASE UPRIGHT POSTURE IN BED WITH HEAD OF BED ELEVATED. TRAY INFRONT OF PATIENT, CALL LIGHT WTHIN REACH, AND BED ALARM IN TACT. CONTINUE TOWARDS PLAN OF CARE. JEANINE PANIAGUA/Gil
--- NOTE | 2019-08-30 10:44 | NUR ---
PATIENT SITTING UP IN BED WATCHING TV, PT AMBULATES TO BSC WITH 1 ASSIST. BRANDYN MURPHY [facility]
[2019-08-30 12:00] VITALS: BP 112/64
--- NOTE | 2019-08-30 13:06 | NUR ---
PT RESTING IN BED WATCHING TV. NO C/O VOICED AT THIS TIME. BRANDYN MURPHY SPNRCC
--- NOTE | 2019-08-30 13:10 | NUR ---
DR. MEJIAS'S ANSWERING SERVICE NOTIFIED OF URINE CULTURE RESULT.
--- NOTE | 2019-08-30 13:35 | NUR ---
PHYSICAL THERAPY Patient seen this pm 1:1 for therapy visit and was supine in bed upon therapist arrival. Patient identified by name / and presented with continuous O2-2L via NC. Patient reports feeling very tired / weak this afternoon and did not feel well enough to transfer or gait this session. Patient agreed to and performed supine B LE therex, all planes, 2 x 10 to increase LE strength. Patient needed several v/c's and AAROM for R LE SLR secondary to increaed weakness. Patient was very pleasant and remained in bed with call light, tray table, telephone and bed alarm for safety. B LE's were also elevated upon pillow following treatment for comfort / LE edema control. Will continue per POC as tolerated, total treatment time 16 minutes. Fredo Martinez, FAMILY LIVING EDUCATOR
--- NOTE | 2019-08-30 13:54 | NUR ---
NYASTATIN POWDER APLLIED TO PTS RIGHT BREAST, AREA WAS REDDENED AND CRACKED. BRANDYN MURPHY SPSARAHCC
[2019-08-30] MEDS ORDERED: VANCO 1 GR1 GM/250 M IV (15:08)
--- NOTE | 2019-08-30 15:24 | NUR ---
OCCUPATIONAL THERAPY CO-SIGN I approve of the Occupational Therapy notes written above. MEGGAN RODRIGUEZ OTR/Gil
[2019-08-30 16:00] VITALS: BP 110/60
[2019-08-30 20:00] VITALS: BP 137/56
--- NOTE | 2019-08-30 22:15 | NUR ---
RESTORIL GIVEN PER PATIENT REQUEST FOR COMPLAINTS OF INSOMNIA. WILL ASSESS EFFECTIVENESS.
[2019-08-31] VITALS: BP 125/46
--- NOTE | 2019-08-31 | NUR ---
RESTORIL EFFECTIVE. PATIENT SLEEPING. NO SIGNS OR SYMPTOMS OF DISTRESS. CALL LIGHT WITHIN REACH. WILL CONTINUE TO MONITOR.
[2019-08-31 07:06] LABS: BASO % 0.6 % (0.0-1.0); EOS # 0.4 10*3/uL (0.0-0.4); EOS % 7.6 % (1.0-4.0); HEMATOCRIT 32.5 % (37.0-47.0); HEMOGLOBIN 9.7 g/dl (12.0-16.0); LYMPH # 0.9 10*3/uL (1.3-4.4); LYMPH % 18.4 % (27.0-41.0); MEAN CELL VOLUME 82.7 fl (81.0-99.0); MEAN CORPUSCULAR HGB 24.7 pg (27.0-31.0); MEAN CORPUSCULAR HGB CONC 29.8 g/dl (33.0-37.0); MEAN PLATELET VOLUME 9.7 fl (9.6-12.3); MONO # 0.6 10*3/uL (0.1-1.0); MONO % 11.6 % (3.0-9.0); NEUT # 2.9 10*3/uL (2.3-7.9); NEUT % 61.4 % (47.0-73.0); PLATELET COUNT AUTOMATED 211 10*3/uL (130-400); RED BLOOD COUNT 3.93 10*6/uL (4.10-5.10); RED CELL DISTRI WIDTH 15.4 % (0-14.5); WHITE BLOOD COUNT 4.7 10*3/uL (4.8-10.8)
[2019-08-31 07:37] LABS: POTASSIUM 3.7 mmol/L (3.5-5.1)
[2019-08-31 07:38] LABS: CREATININE 2.05 mg/dL (0.55-1.02)
[2019-08-31 08:00] VITALS: BP 120/47; BP 120/60
--- NOTE | 2019-08-31 11:43 | NUR ---
PHYSICAL THERAPY Patient supine in bed at time of arrival; patient reports increased pain in (B) LE's but reports swelling has decreased significantly. Patient did not want to get out of bed this date due to pain, but was agreeable to perform supine B LE ther-ex. Patient performed supine B LE ther-ex, AROM/AAROM; for strength, mobility and ROM: quad sets with 5 sec hold, hip ABD/ADD, hip ext/flexion, SLR, ankle PF/DF and glute sets 2x10 reps. Intermittent rest breaks provided throughout, due to fatigue. Pt benefits from cues for technique, pacing and progression of exercises. ELECTRIC HOIST OPERATOR monitoring patient pain throughout with no increase post session. Patient educated on importance of moving/elevating LE's while in bed to help with LE edema and pain. Patient very sweet and appreciated education provided. Patient supine in bed at session end with call light and tray table within reach. Roma Qiu, ELECTRIC HOIST OPERATOR
[2019-08-31 12:00] VITALS: BP 128/47
--- NOTE | 2019-08-31 14:00 | NUR ---
PT TRANSFERRED FROM TELEMETRY FLOOR AT 1400. REPORT GIVEN BY CALVIN, 1400 MEDS GIVEN.PATIENT RESTING COMFORTABLY.
[2019-08-31 16:00] VITALS: BP 134/58
[2019-08-31 20:00] VITALS: BP 133/58
--- NOTE | 2019-08-31 20:25 | NUR ---
MEDICATED WITH 2 TYLENOL FOR C/O HEADACHE. AWAKE, ALERT & ORIENTED SITTING UP IN BED. STATES SHE IS FEELING NAUSEOUS; BASIN GIVEN TO PATIENT. NO EMESIS AT THIS TIME; ONLY DRY HEAVING SOMEWHAT. BLOOD SUGAR 194. CALL LIGHT WITHIN REACH.
--- NOTE | 2019-08-31 22:00 | NUR ---
VOICES NO FURTHER C/O HEADACHE AT THIS TIME. TYLENOL GIVEN EARLIER APPARENTLY EFFECTIVE. CALL LIGHT REMAINS WITHIN REACH.
--- NOTE | 2019-08-31 22:15 | NUR ---
MAXIMUM ASSISTANCE OF 2 UP TO BSC. HAD A LOOSE STOOL WITH URINE IN IT. UNABLE TO OBTAIN STOOL SPECIMEN AT THIS TIME FOR CDIFF.
[2019-09-01] VITALS: BP 116/52
--- NOTE | 2019-09-01 06:00 | NUR ---
BLOOD SUGAR 101; NO COVERAGE REQUIRED.
[2019-09-01 08:00] VITALS: BP 134/59
[2019-09-01 12:00] VITALS: BP 128/60
[2019-09-01] MEDS ORDERED: AUGMENTIN 875875 MG PO (12:13)
[2019-09-01] MEDS ORDERED: HYDROCODONE-AC1 EAC1 PO (12:14)
--- NOTE | 2019-09-01 17:00 | NUR ---
Discharge instructions reviewed with patient/family. Patient receptive and verbalizes understanding. Follow-up care arranged. Written instructions given to patient/family. KENNEDI GUILLERMO
--- NOTE | 2019-09-04 07:43 | NUR ---
PHYSICAL THERAPY CO-SIGN I approve of the Physical Therapy notes written above. Tamiko Lozano PT
== END 2019-09-01 17:00 | DRG 602 ==
LOC: ED 12:57 → EDHOLD 15:12 → 4E 15:12 → 5E 08-31 14:05
PROVIDERS: Nurse Practitioner Family; ADMIT Internal Medicine
DX: L03.116 Cellulitis of left lower limb (principal); I50.31 Acute diastolic (congestive) heart failure; N30.00 Acute cystitis without hematuria; N18.4 Chronic kidney disease, stage 4 (severe); I13.0 Hypertensive heart and chronic kidney disease with heart failure and stage 1 through stage 4 chronic kidney disease, or unspecified chronic kidney disease; L03.115 Cellulitis of right lower limb; E83.41 Hypermagnesemia; Z66 Do not resuscitate; Z51.5 Encounter for palliative care; D50.8 Other iron deficiency anemias; I25.10 Atherosclerotic heart disease of native coronary artery without angina pectoris; B96.20 Unspecified Escherichia coli [E. coli] as the cause of diseases classified elsewhere; K21.9 Gastro-esophageal reflux disease without esophagitis; E11.40 Type 2 diabetes mellitus with diabetic neuropathy, unspecified; E78.5 Hyperlipidemia, unspecified; E03.9 Hypothyroidism, unspecified; G20 Parkinson's disease; E11.649 Type 2 diabetes mellitus with hypoglycemia without coma; F41.9 Anxiety disorder, unspecified; F02.80 Dementia in other diseases classified elsewhere, unspecified severity, without behavioral disturbance, psychotic disturbance, mood disturbance, and anxiety; E11.22 Type 2 diabetes mellitus with diabetic chronic kidney disease; Z88.1 Allergy status to other antibiotic agents; Z88.5 Allergy status to narcotic agent; Z88.2 Allergy status to sulfonamides; Z88.6 Allergy status to analgesic agent; Z98.42 Cataract extraction status, left eye; Z98.41 Cataract extraction status, right eye; Z90.710 Acquired absence of both cervix and uterus; Z95.5 Presence of coronary angioplasty implant and graft; Z85.72 Personal history of non-Hodgkin lymphomas; Z81.2 Family history of tobacco abuse and dependence; Z82.61 Family history of arthritis; Z80.1 Family history of malignant neoplasm of trachea, bronchus and lung; Z79.899 Other long term (current) drug therapy

== ENCOUNTER 2019-11-14 12:13 | Emergency (ER) | payer MEDICARE, OTHER ==
[~2019-11-14] VITALS: Ht 157.4 cm; Wt 77.1 kg
[~2019-11-14 12:13] MED LIST changes: +ALBUTEROL2.5 MG/0.5 INH; +ARTIFICIAL TEA1 EACH OP; +ATARAX,VISTARIL10 MG PO; +AUGMENTIN 875875 MG PO; +CARBIDOPA-LEVO1 EAC1 PO; +DULCOLAX STOOL100 M1 PO; +DULOXETINE HCL60 MG PO; +GERI-KOT8.6 MG PO; +HUMALOG100 UNIT/2 SQ; +HYDROCODONE-AC1 EAC1 PO; +LEVOTHYROXINE75 MCG PO; +LIDOCAINE PAIN1 EACH TD; +MELATONIN5 M1 SL; +MIRTAZAPINE45 MG PO; +PROTONIX40 MG PO; +SANADERMRX SKI1 EACH T; +ULTRAM50 MG PO; +VANCO 1 GR1 GM/250 M IV; +VITAMIN D31000 UNI1 PO
[2019-11-14 12:47] LABS: BASO % 0.5 % (0.0-1.0); EOS # 0.2 10*3/uL (0.0-0.4); EOS % 3.7 % (1.0-4.0); HEMOGLOBIN 10.2 g/dl (12.0-16.0); LYMPH # 1.7 10*3/uL (1.3-4.4); LYMPH % 29.5 % (27.0-41.0); MEAN CELL VOLUME 79.7 fl (81.0-99.0); MEAN CORPUSCULAR HGB 23.2 pg (27.0-31.0); MEAN CORPUSCULAR HGB CONC 29.1 g/dl (33.0-37.0); MEAN PLATELET VOLUME 9.6 fl (9.6-12.3); MONO # 0.5 10*3/uL (0.1-1.0); MONO % 8.2 % (3.0-9.0); NEUT # 3.3 10*3/uL (2.3-7.9); NEUT % 57.9 % (47.0-73.0); PLATELET COUNT AUTOMATED 279 10*3/uL (130-400); RED BLOOD COUNT 4.39 10*6/uL (4.10-5.10); RED CELL DISTRI WIDTH 16.8 % (0-14.5); WHITE BLOOD COUNT 5.6 10*3/uL (4.8-10.8)
[2019-11-14 12:58] LABS: ACT PARTIAL THROMBO TIME 25.4 SECONDS (20.0-32.1)
[2019-11-14 13:03] LABS: ALBUMIN 3.5 gm/dl (3.1-4.5); BUN 30 mg/dl (7-24); CHLORIDE 106 mmol/L (98-107); CREATININE 2.21 mg/dL (0.55-1.02); POTASSIUM 4.7 mmol/L (3.5-5.1); SGOT/AST 10 IU/L (3-35); SGPT/ALT 9 U/L (12-78); SODIUM 141 mmol/L (136-145); TOTAL PROTEIN 7.3 gm/dL (6.4-8.2)
[2019-11-14 13:06] LABS: ALKALINE PHOSPHATASE 85 U/L (45-117); TROPONIN I < 0.015 ng/ml (<0.045)
[2019-11-14 15:16] VITALS: BP 130/56
[2019-11-14 16:59] LABS: CLARITY CLEAR (CLEAR); COLOR YELLOW (YELLOW); SPECIFIC GRAVITY 1.015 (1.005-1.030)
[2019-11-14 17:00] LABS: BILIRUBIN NEGATIVE (NEGATIVE); BLOOD NEGATIVE (NEGATIVE); GLUCOSE NEGATIVE (NEGATIVE); KETONE NEGATIVE (NEGATIVE); NITRITE POSITIVE (NEGATIVE); UROBILINOGEN 0.2 E.U./dl (0.2-1.0)
[2019-11-14 17:01] LABS: BACTERIA 3+; EPITHELIAL CELLS 0-2; LEUKO ESTERASE 2+ (NEGATIVE); WBC 16-20 wbc/hpf (0-5)
== END 2019-11-14 18:27 | disposition short-term general hospital (02) ==
LOC: ED 12:13
PROVIDERS: Emergency Medicine
DX: R53.1 Weakness (principal); G91.2 (Idiopathic) normal pressure hydrocephalus; R51 Headache; I25.10 Atherosclerotic heart disease of native coronary artery without angina pectoris; F03.90 Unspecified dementia, unspecified severity, without behavioral disturbance, psychotic disturbance, mood disturbance, and anxiety; E11.22 Type 2 diabetes mellitus with diabetic chronic kidney disease; I13.0 Hypertensive heart and chronic kidney disease with heart failure and stage 1 through stage 4 chronic kidney disease, or unspecified chronic kidney disease; N18.3 Chronic kidney disease, stage 3 (moderate); I50.9 Heart failure, unspecified; E11.40 Type 2 diabetes mellitus with diabetic neuropathy, unspecified; K21.9 Gastro-esophageal reflux disease without esophagitis; E78.5 Hyperlipidemia, unspecified; E03.9 Hypothyroidism, unspecified; Z88.1 Allergy status to other antibiotic agents; Z88.5 Allergy status to narcotic agent; Z88.2 Allergy status to sulfonamides; Z88.8 Allergy status to other drugs, medicaments and biological substances; Z79.2 Long term (current) use of antibiotics; Z79.899 Other long term (current) drug therapy; Z98.61 Coronary angioplasty status; Z90.710 Acquired absence of both cervix and uterus

== ENCOUNTER 2019-12-22 11:24 | Emergency (ER) | payer MEDICARE, OTHER ==
[~2019-12-22] VITALS: Ht 157.4 cm; Wt 74.8 kg
[2019-12-22 11:30] VITALS: BP 145/43
== END 2019-12-22 15:16 | disposition other institution (70) ==
LOC: ED 11:24
DX: S43.004A Unspecified dislocation of right shoulder joint, initial encounter (principal); S00.93XA Contusion of unspecified part of head, initial encounter; I25.10 Atherosclerotic heart disease of native coronary artery without angina pectoris; K21.9 Gastro-esophageal reflux disease without esophagitis; E11.9 Type 2 diabetes mellitus without complications; Z88.2 Allergy status to sulfonamides; Z88.5 Allergy status to narcotic agent; Z79.899 Other long term (current) drug therapy; Z79.4 Long term (current) use of insulin; X58.XXXA Exposure to other specified factors, initial encounter; Y93.89 Activity, other specified; Y92.89 Other specified places as the place of occurrence of the external cause; Y99.8 Other external cause status